=== PATIENT | male | born 1945 | race Caucasian/White ===

== ENCOUNTER 2016-07-28 19:57 | Emergency (ER) | payer MEDICARE ==
[2016-07-28 20:25] VITALS: BP 118/77
--- NOTE | 2016-07-28 20:34 | UC ---
Lower Extremity/Ankle HPI - HPI Summary HPI Summary: complaint of pain in right calf that started 3 days ago constantly throbbing pain leg has become more swollen ambulating and standing increases the pain pain radiates into his ankle and knee currently has lung cancer- 2 chemo treatments [place] has been taking tylenol without relief denies fever, trauma,previous injuries - History of Current Complaint Chief Complaint: UCLowerExtremity Stated Complaint: LEG PAIN Time Seen by Provider: 07/28/16 20:28 - Allergies/Home Medications Allergies/Adverse Reactions: Allergies Allergy/AdvReac Type Severity Reaction Status Date / Time anesthesia Allergy Anxiety Uncoded 06/07/16 05:33 PMH/Surg Hx/FS Hx/Imm Hx Previously Healthy: No - lung cancer Endocrine History Of: Denies: Diabetes Cardiovascular History Of: Denies: Hypertension, Pacemaker/ICD Respiratory History Of: Denies: Asthma Cancer History Of: Reports: Lung Cancer - Surgical History Surgical History: Yes Surgery Procedure, Year, and Place: 1949'S TONSILLECTOMY, (5 YEARS OLD), [place] [facility] [place] 1985 RIGHT INGUINAL HERNIA REPAIR, [facility], [facility], [facility] - Family History Known Family History: Negative: Cardiac Disease, Hypertension, Diabetes Family History: No FHx of malignant hyperthermia. No FHx of anesthesia reaction - Social History Occupation: Disabled Lives: With Family Alcohol Use: None Substance Use Type: None Smoking Status (MU): Former Smoker Amount Used/How Often: 1 PPD Length of Time of Smoking/Using Tobacco: quit smoking in 1997 Have You Smoked in the Last Year: No When Did the Patient Quit Smoking/Using Tobacco: 1997 - Immunization History Most Recent Influenza Vaccination: 05/29/16 Most Recent Tetanus Shot: unknown Most Recent Pneumonia Vaccination: 2013 Review of Systems Constitutional: Negative Skin: Negative Eyes: Negative ENT: Negative Respiratory: Negative Cardiovascular: Negative Gastrointestinal: Negative Genitourinary: Negative Motor: Negative Neurovascular: Negative Musculoskeletal: Other: - RLE pain Neurological: Negative Psychological: Negative All Other Systems Reviewed And Are Negative: Yes Physical Exam Triage Information Reviewed: Yes Appearance: Ill-Appearing, Thin, Cachectic Vital Signs: Initial Vital Signs Temp 96.8 F 07/28/16 20:21 Pulse 84 07/28/16 20:21 Resp 18 07/28/16 20:21 BP 118/77 07/28/16 20:21 Pulse Ox 96 07/28/16 20:21 Vital Signs Reviewed: Yes Eyes: Positive: Conjunctiva Clear ENT: Positive: Pharynx normal, TMs normal. Negative: Nasal congestion Neck: Positive: Supple Respiratory: Positive: Lungs clear, Normal breath sounds, No respiratory distress Cardiovascular: Positive: RRR, No Murmur, Pulses Normal Abdomen Description: Positive: Nontender, Soft Bowel Sounds: Positive: Present Musculoskeletal: Positive: Other: - RLE- edema in right calf , tenderness throughout calf Neurological: Positive: Alert Psychological Exam: Normal Lower Extremity Course/Dx - Course Course Of Treatment: exam completed. discussed that best course of treatment is to proceed to the Emergency Room for further evaluation with doppler/US. pt adamantly refuses to go to the ED- stating that he understands the risk of not getting treatment 'If I sofia from a stroke, cardiac arrest or oulmonary embolism tonight it will be a blessing" - Differential Dx/Diagnosis Differential Diagnosis/HQI/PQRI: DVT Provider Diagnoses: right lower leg pain Discharge - Discharge Plan Condition: Stable Disposition: AGAINST MEDICAL ADVICE Referrals: Samir Brumfield MD [Primary Care Provider] -
== END 2016-07-28 20:54 | disposition left against medical advice (07) ==
LOC: UCEAST 19:57
DX: M79.661 Pain in right lower leg (principal); Z88.4 Allergy status to anesthetic agent; Z87.891 Personal history of nicotine dependence
CPT/HCPCS: 99212; G0463

== ENCOUNTER 2016-07-29 07:07 | Emergency (ER) | payer MEDICARE ==
[2016-07-29 07:27] VITALS: BP 122/82
--- NOTE | 2016-07-29 08:23 | UC ---
Eric Cavanaugh SooYoung, [facility] on 07/29/16 at 0745 . Lower Extremity/Ankle HPI - HPI Summary HPI Summary: A 71 y/o M presents to [facility] with c/o R heel pain radiating to calf when bearing weight onset 4 days ago. Associated sx: edema. Denies any trauma, SOB. Pt was seen yesterday evening at [facility] for same sx. He was recommended to ED to r/u DVT and refused. Pt left AMA. PMHx: Lung CA since 05/2016. Pt states he saw Dr. Stein at [place] a few days ago. She said if the pain did not dissipate in a few days to follow-up, which is why he came to [facility]. - History of Current Complaint Stated Complaint: LEG PAIN Time Seen by Provider: 07/29/16 07:14 Hx Obtained From: Patient, Medical Records Onset/Duration: Lasting Days, Still Present Severity Currently: Mild Pain Intensity: 2 Pain Scale Used: 0-10 Numeric Aggravating Factor(s): Standing, Ambulation - Allergies/Home Medications Allergies/Adverse Reactions: Allergies Allergy/AdvReac Type Severity Reaction Status Date / Time No Known Allergies Allergy Verified 07/29/16 07:19 PMH/Surg Hx/FS Hx/Imm Hx Previously Healthy: No Endocrine History Of: Denies: Diabetes Cardiovascular History Of: Denies: Hypertension, Pacemaker/ICD Respiratory History Of: Denies: Asthma Cancer History Of: Reports: Lung Cancer - Surgical History Surgical History: Yes Surgery Procedure, Year, and Place: 1950'S TONSILLECTOMY, (5 YEARS OLD), [place] [facility] [place] 1985 RIGHT INGUINAL HERNIA REPAIR, [facility] - Family History Known Family History: Negative: Cardiac Disease, Hypertension, Diabetes Family History: No FHx of malignant hyperthermia. No FHx of anesthesia reaction - Social History Occupation: Disabled Lives: With Family Alcohol Use: None Substance Use Type: None Smoking Status (MU): Former Smoker Amount Used/How Often: 1 PPD Length of Time of Smoking/Using Tobacco: quit smoking in 1997 Have You Smoked in the Last Year: No When Did the Patient Quit Smoking/Using Tobacco: 1997 - Immunization History Most Recent Influenza Vaccination: 05/29/16 Most Recent Tetanus Shot: unknown Most Recent Pneumonia Vaccination: 2013 Review of Systems Constitutional: Negative Skin: Negative Eyes: Negative ENT: Negative Respiratory: Negative Cardiovascular: Negative Gastrointestinal: Negative Genitourinary: Negative Motor: Negative Neurovascular: Negative Musculoskeletal: Calf Tenderness - R calf, heel pain, Edema - R calf Neurological: Negative Psychological: Negative All Other Systems Reviewed And Are Negative: Yes Physical Exam Triage Information Reviewed: Yes Appearance: Well-Appearing, No Pain Distress, Well-Nourished Vital Signs: Initial Vital Signs Temp 97.3 F 07/29/16 07:21 Pulse 80 07/29/16 07:21 Resp 18 07/29/16 07:21 BP 122/82 07/29/16 07:21 Pulse Ox 96 07/29/16 07:21 Vital Signs Reviewed: Yes Eyes: Positive: Conjunctiva Clear ENT: Positive: Hearing grossly normal, Pharynx normal, TMs normal. Negative: Muffled/hoarse voice Neck: Positive: Supple, No Lymphadenopathy Respiratory: Positive: Chest non-tender, Lungs clear, Normal breath sounds, No respiratory distress Cardiovascular: Positive: RRR, No Murmur Abdomen Description: Positive: Nontender, No Organomegaly, Soft Bowel Sounds: Positive: Present Musculoskeletal: Positive: Strength Intact, Other: - MILLER; Neurological: Positive: Alert Psychological: Positive: Age Appropriate Behavior Skin: Negative: rashes - Additional Comments R MID CALF IS 14" AND L MID CALF IS 13" NEGATIVE RENEE'S. NO EVIDENCE OF THROMBOPHLEBITIS. NO CALF TENDERNESS WITH PALPATION. MILD DISCOMFORT AT TENDON INSERTIONS AT VOLAR FOOT AT CALCANEUS. Lower Extremity Course/Dx - Course Course Of Treatment: Spoke to pt at length, I suspect this is an orthopedic problem, possibly tendonitis, bursitis or ligament strain of R ankle. Plantar fasciitis is likely. Pt. refuses ankle/footx rays. There is swelling of R calf and pt, correctly, "wants to be safe." He will f/u today with his primary, because scheduling does not permit us to US at [facility]. Pt refuses to go to ED due to concerns about wait times. Note is made: pt was under the impression he could receive U/S today, and was dissappointed that he could not. I suggested that patient call me if he has further questions or concerns, and that I would be here again in 2 days. - Differential Dx/Diagnosis Differential Diagnosis/HQI/PQRI: Bursitis, Tendonitis, Other - ligament strain of R ankle Provider Diagnoses: R ankle discomfort, possible plantar fasciitis. Discharge - Discharge Plan Condition: Stable Disposition: HOME Patient Education Materials: Plantar Fasciitis (ED), Leg Edema (ED) Referrals: Samir Brumfield MD [Primary Care Provider] - Additional Instructions: WE DISCUSSED: 1. Your discomfort with standing may be related to inflammation of the tendons of your foot. See attached information. 2. An ultrasound can be obtained at the ED. 3. Call your physician for your next steps. 4. Elevate leg whenever possible. Ice to area for pain. Warm moist heat in the morning or when stiff. The documentation as recorded by the Eric abbasi SooYoung accurately reflects the service I personally performed and the decisions made by , Rusty Hurt MD.
== END 2016-07-29 08:20 | disposition home or self-care (01) ==
LOC: UCEAST 07:07
DX: M25.571 Pain in right ankle and joints of right foot (principal); Z85.118 Personal history of other malignant neoplasm of bronchus and lung; Z87.891 Personal history of nicotine dependence
CPT/HCPCS: 99211; G0463

== ENCOUNTER 2016-08-28 13:43 | Inpatient (IN) | payer MEDICARE ==
[2016-08-28] MEDS ORDERED: NS 0.9% 1000 ML* 3,000 ML IV ONE (14:18)
[2016-08-28 14:35] LABS: Hematocrit 35 % (42-52); Hemoglobin 11.6 g/dl (14.0-18.0); Mean Corpuscular HGB Conc 33 g/dl (31-36); Mean Corpuscular Hemoglobin 30 pg (27-31); Mean Corpuscular Volume 90 fL (80-94); Mean Platelet Volume 7 um3 (7.4-10.4); Red Blood Count 3.88 10^6/ul (4.0-5.4); Red Cell Distribution Width 19 % (10.5-15); White Blood Count 2.5 10^3/ul (3.5-10.8)
[2016-08-28 14:37] LABS: Add Diff/Slide Review? Slide Review Added; Comments Flag Yes
[2016-08-28 14:48] LABS: Albumin 3.1 g/dL (3.2-5.2); BUN/Creatinine Ratio 38.6 (8-20); C Reactive Protein 13.42 mg/L (< 5.00); Calcium 8.7 mg/dL (8.6-10.3); EGFR African American 117.5 (>60); EGFR Non-African American 91.3 (>60); Globulin 2.3 g/dL (2-4); Magnesium 1.8 mg/dL (1.9-2.7); Potassium 4.5 mmol/L (3.5-5.0); Total Bilirubin 1.2 mg/dL (0.2-1.0); Total Protein 5.4 g/dL (6.4-8.9)
--- NOTE | 2016-08-28 14:48 | RAD ---
INDICATION: Superventricular tachycardia. COMPARISON: There are no prior studies available for comparison. TECHNIQUE: A portable view of the chest was obtained. FINDINGS: The heart is within normal limits in size. There is an infiltrate present at the right lung base and a small right pleural effusion. The left lung appears clear. IMPRESSION: RIGHT BASILAR INFILTRATE AND PLEURAL EFFUSION, RECOMMEND FOLLOW-UP CHEST X-RAYS TO RESOLUTION.
[2016-08-28 14:56] LABS: Troponin I 0.25 ng/mL (<0.04)
[2016-08-28 15:12] LABS: Urine Bilirubin Negative (Negative); Urine Glucose Negative (Negative); Urine Nitrite Negative (Negative)
[2016-08-28 15:26] LABS: TSH (Thyroid Stimulating Horm) 2.28 mcIU/mL (0.34-5.60)
[2016-08-28] MEDS ORDERED: Magnesium Sulfate 2 GM IV* 2 GM/50 ML BAG IVPB ONE (15:31)
[2016-08-28] MEDS ORDERED: Ondansetron INJ* 2 MG/ML VIAL IV PRN (15:39)
[2016-08-28] MEDS ORDERED: Acetaminophen TAB* 325 MG PO PRN (15:39)
[2016-08-28] MEDS ORDERED: cefTRIAXone(*) 1 GM in NS 0.9% 50 ML* 50 ML IVPB ONE (15:42)
[2016-08-28] MEDS ORDERED: Azithromycin IV(*) 500 MG in NS 0.9% 250 ML* 250 ML IVPB ONE (15:42)
--- NOTE | 2016-08-28 15:47 | ED ---
Evans Cavanaugh Benjamin, scribed for Modesto Coto MD on 08/28/16 at 1426 . Palpitations / Dysrhythmia - HPI Summary HPI Summary: 71yo male BIB EMS for arrhythmia. At 1030 today, pt started feeling nervous and anxious, with 2/10 right sided CP. Then his visiting nurse found HR of 147 and low BP. Pt was in aflutter en route, was given adenosine by EMT. Pts CP has been intermittent in the past few days but was constant today. Pt was also recently dxed with afib, and have 2 DVT in right leg 2 weeks ago. On Xeralto. 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 Denies N/V, fever , calf pain, but reports chills. Fhx of stomach CA, and CAD. - History of Current Complaint Chief Complaint: EDDysrhythmPalp Hx Obtained From: Patient Onset/Duration: Sudden Onset, Lasting Hours, Still Present Timing: Constant Severity Initially: Mild Severity Currently: Mild Character: Fluttering Aggravating: Nothing Alleviating: Nothing Associated Signs & Symptoms: Chest Pain - righ sided - Allergy/Home Medications Allergies/Adverse Reactions: Allergies Allergy/AdvReac Type Severity Reaction Status Date / Time No Known Allergies Allergy Verified 08/28/16 14:02 Home Medications: Home Medications Dexamethasone TAB* [Decadron TAB*] 4 mg PO TID 08/28/16 [History Confirmed 08/28] Folic Acid TAB* [Folvite TAB*] 1 mg PO DAILY 08/28/16 [History Confirmed ] LORazepam TAB(*) [Ativan TAB(*)] 1 mg PO .Q4-6H PRN 08/28/16 [History Confirmed 08/28/16] OLANzapine TAB* [ZyPREXA TAB*] 10 mg PO BEDTIME 08/28/16 [History Confirmed 08/13] Rivaroxaban TAB(*) [Xarelto 20 mg] 20 mg PO DAILY 08/28/16 [History Confirmed ] PMH/Surg Hx/FS Hx/Imm Hx Endocrine/Hematology History: Denies: Hx Diabetes Cardiovascular History: Reports: Hx Aneurysm, Other Cardiovascular Problems/ Disorders - abdominal aortic aneurysm Denies: Hx Hypertension, Hx Pacemaker/ICD Respiratory History: Reports: Hx Lung Cancer Denies: Hx Asthma History: Reports: Other Problems/Disorders - SLOW STREAM, PROSTATE CANCER DIAGNOSISED 2012 Musculoskeletal History: Reports: Hx Arthritis Sensory History: Reports: Hx Contacts or Glasses - GLASSES FOR DISTANCE Denies: Hx Hearing Aid Opthamlomology History: Reports: Hx Contacts or Glasses - GLASSES FOR DISTANCE Psychiatric History: Denies: Hx Panic Disorder - Cancer History Cancer Type, Location and Year: LUNG CA - Surgical History Surgery Procedure, Year, and Place: 1949'S TONSILLECTOMY, (5 YEARS OLD), [place] [facility] [place] 1985 [facility] [place] Hx Anesthesia Reactions: Yes - "FELT LIKE I NEED TO CLIMB THE CARRILLO, COMING OUT OF ANESTHESIA" - Immunization History Date of Tetanus Vaccine: UTD Date of Influenza Vaccine: 06/04/16 Infectious Disease History: No Infectious Disease History: Denies: Traveled Outside the [place] in Last 30 Days - Family History Known Family History: Positive: Cardiac Disease, Other - stomach CA Negative: Hypertension, Diabetes Family History: No FHx of malignant hyperthermia. No FHx of anesthesia reaction - Social History Alcohol Use: None Substance Use Type: Reports: None Smoking Status (MU): Former Smoker Amount Used/How Often: 1 PPD Length of Time of Smoking/Using Tobacco: quit smoking in 1997 Have You Smoked in the Last Year: No Review of Systems Constitutional: Negative Eyes: Negative ENT: Negative Positive: Palpitations, Chest Pain Positive: Shortness Of Breath Gastrointestinal: Negative Genitourinary: Negative Musculoskeletal: Negative Skin: Negative Neurological: Negative Positive: Anxious All Other Systems Reviewed And Are Negative: Yes Physical Exam Triage Information Reviewed: Yes Vital Signs On Initial Exam: Initial Vitals BP 94/61 08/28/16 14:00 Vital Signs Reviewed: Yes Appearance: Positive: Well-Appearing, No Pain Distress, Well-Nourished Skin: Positive: Warm, Skin Color Reflects Adequate Perfusion, Dry Head/Face: Positive: Normal Head/Face Inspection Eyes: Positive: Normal ENT: Positive: Normal ENT inspection Neck: Positive: Supple, Nontender Respiratory/Lung Sounds: Positive: Clear to Auscultation, Breath Sounds Present Cardiovascular: Positive: RRR Abdomen Description: Positive: Nontender, No Organomegaly, Soft Bowel Sounds: Positive: Present Musculoskeletal: Positive: Strength/ROM Intact, Edema Right - mild pedal edema Neurological: Positive: Normal, Sensory/Motor Intact, Alert, Oriented to Person Place, Time, CN Intact II-III, Other - chronic tremors Diagnostics - Vital Signs Vital Signs Temp Pulse Resp BP Pulse Ox 08/28/16 14:03 98.2 F 100 24 94/61 99 08/28/16 14:01 73 25 98 08/28/16 14:00 94/61 - Laboratory Lab Results: Lab Results 08/28/16 08/28/16 08/28/16 Range/Units 14:10 14:10 14:10 WBC 2.5 L (3.5-10.8) 10^3/ul RBC 3.88 L (4.0-5.4) 10^6/ul Hgb 11.6 L (14.0-18.0) g/dl Hct 35 L (42-52) % MCV 90 (80-94) fL MCH 30 (27-31) pg MCHC 33 (31-36) g/dl RDW 19 H (10.5-15) % Plt Count 54 L (150-450) 10^3/ul MPV 7 L (7.4-10.4) um3 Neut % (Auto) 72.0 (38-83) % Lymph % (Auto) 26.7 (25-47) % Banner % (Auto) 1.1 (1-9) % Eos % (Auto) 0.1 (0-6) % Baso % (Auto) 0.1 (0-2) % Absolute Neuts (auto) 1.8 (1.5-7.7) 10^3/ul Absolute Lymphs (auto) 0.7 L (1.0-4.8) 10^3/ul Absolute Monos (auto) 0 (0-0.8) 10^3/ul Absolute Eos (auto) 0 (0-0.6) 10^3/ul Absolute Basos (auto) 0 (0-0.2) 10^3/ul Absolute Nucleated RBC 0 10^3/ul Nucleated RBC % 0.1 Hem Pathologist Commnt Pending INR (Anticoag Therapy) 1.43 H (0.89-1.11) APTT 25.5 L (26.0-36.3) seconds D-Dimer, Quantitative > 1050 H (Less Than 230) ng/mL Sodium 137 (133-145) mmol/L Potassium 4.5 (3.5-5.0) mmol/L Chloride 104 (101-111) mmol/L Carbon Dioxide 27 (22-32) mmol/L Anion Gap 6 (2-11) mmol/L BUN 32 H (6-24) mg/dL Creatinine 0.83 (0.67-1.17) mg/dL Est GFR ( Amer) 117.5 (>60) Est GFR (Non-Af Amer) 91.3 (>60) BUN/Creatinine Ratio 38.6 H (8-20) Glucose 102 H (70-100) mg/dL Lactic Acid (0.5-2.0) mmol/L Calcium 8.7 (8.6-10.3) mg/dL Magnesium 1.8 L (1.9-2.7) mg/dL Total Bilirubin 1.20 H (0.2-1.0) mg/dL AST 84 H (13-39) U/L ALT 185 H (7-52) U/L Alkaline Phosphatase 90 (34-104) U/L Total Creatine Kinase 49 (10-223) U/L CK-MB (CK-2) 11.1 H (0.6-6.3) ng/mL Troponin I 0.25 H* (<0.04) ng/mL C-Reactive Protein 13.42 H (< 5.00) mg/L B-Natriuretic Peptide ( - 100) pg/mL Total Protein 5.4 L (6.4-8.9) g/dL Albumin 3.1 L (3.2-5.2) g/dL Globulin 2.3 (2-4) g/dL Albumin/Globulin Ratio 1.3 (1-3) Lipase 24 (11.0-82.0) U/L TSH 2.28 (0.34-5.60) mcIU/mL Urine Color Urine Appearance Urine pH (5-9) Ur Specific [place] (1.010-1.030) Urine Protein (Negative) Urine Ketones (Negative) Urine Blood (Negative) Urine Nitrate (Negative) Urine Bilirubin (Negative) Urine Urobilinogen (Negative) Ur Leukocyte Esterase (Negative) Urine Glucose (Negative) 08/28/16 08/28/16 08/28/16 Range/Units 14:10 14:10 14:55 WBC (3.5-10.8) 10^3/ul RBC (4.0-5.4) 10^6/ul Hgb (14.0-18.0) g/dl Hct (42-52) % MCV (80-94) fL MCH (27-31) pg MCHC (31-36) g/dl RDW (10.5-15) % Plt Count (150-450) 10^3/ul MPV (7.4-10.4) um3 Neut % (Auto) (38-83) % Lymph % (Auto) (25-47) % Banner % (Auto) (1-9) % Eos % (Auto) (0-6) % Baso % (Auto) (0-2) % Absolute Neuts (auto) (1.5-7.7) 10^3/ul Absolute Lymphs (auto) (1.0-4.8) 10^3/ul Absolute Monos (auto) (0-0.8) 10^3/ul Absolute Eos (auto) (0-0.6) 10^3/ul Absolute Basos (auto) (0-0.2) 10^3/ul Absolute Nucleated RBC 10^3/ul Nucleated RBC % Hem Pathologist Commnt INR (Anticoag Therapy) (0.89-1.11) APTT (26.0-36.3) seconds D-Dimer, Quantitative (Less Than 230) ng/mL Sodium (133-145) mmol/L Potassium (3.5-5.0) mmol/L Chloride (101-111) mmol/L Carbon Dioxide (22-32) mmol/L Anion Gap (2-11) mmol/L BUN (6-24) mg/dL Creatinine (0.67-1.17) mg/dL Est GFR ( Amer) (>60) Est GFR (Non-Af Amer) (>60) BUN/Creatinine Ratio (8-20) Glucose (70-100) mg/dL Lactic Acid 2.3 H* (0.5-2.0) mmol/L Calcium (8.6-10.3) mg/dL Magnesium (1.9-2.7) mg/dL Total Bilirubin (0.2-1.0) mg/dL AST (13-39) U/L ALT (7-52) U/L Alkaline Phosphatase (34-104) U/L Total Creatine Kinase (10-223) U/L CK-MB (CK-2) (0.6-6.3) ng/mL Troponin I (<0.04) ng/mL C-Reactive Protein (< 5.00) mg/L B-Natriuretic Peptide 790 H ( - 100) pg/mL Total Protein (6.4-8.9) g/dL Albumin (3.2-5.2) g/dL Globulin (2-4) g/dL Albumin/Globulin Ratio (1-3) Lipase (11.0-82.0) U/L TSH (0.34-5.60) mcIU/mL Urine Color Yellow Urine Appearance Clear Urine pH 6.0 (5-9) Ur Specific [place] 1.016 (1.010-1.030) Urine Protein Negative (Negative) Urine Ketones Negative (Negative) Urine Blood Negative (Negative) Urine Nitrate Negative (Negative) Urine Bilirubin Negative (Negative) Urine Urobilinogen Negative (Negative) Ur Leukocyte Esterase Negative (Negative) Urine Glucose Negative (Negative) Result Diagrams: 08/28/16 14:10 08/28/16 14:10 Lab Statement: Any lab studies that have been ordered have been reviewed, and results considered in the medical decision making process. - Radiology CXR Xray Interpretation: Positive (See Comments) - IMPRESSION: RIGHT BASILAR INFILTRATE AND PLEURAL EFFUSION, RECOMMEND FOLLOW-UP CHEST X-RAYS TO RESOLUTION. Radiology Interpretation Completed By: Radiologist - EKG 0996. Cardiac Rate: NL - 88bpm ST Segment: Non-Specific - no specific ST abnormalities diffusely. Course/Dx - Course Assessment/Plan: PATIENT INITIALLY IN RAPID AFIB IN ED WITH HYPOTENSION. AFTER IV FLUIDS, PATIENT RETURNED TO NORMAL SINUS. CXR WITH INFILTRATE, WILL TREAT WITH IV ABX. ADMIT HOSPITALIST STABLE. - Diagnoses Provider Diagnoses: SVT (supraventricular tachycardia), A-fib, Elevated troponin, Pneumonia Discharge - Discharge Plan Condition: Stable Disposition: ADMITTED TO [facility] Referrals: Samir Brumfield MD [Primary Care Provider] - The documentation as recorded by the Evans abbasi Benjamin accurately reflects the service I personally performed and the decisions made by ky, Modesto Coto MD.
[2016-08-28] MEDS ORDERED: LORazepam TAB(*) 1 MG PO ONE (17:11)
[2016-08-28] MEDS ORDERED: Iohexol 350* (CONTRAST) 500 ML MDV IV ONE (17:35)
--- NOTE | 2016-08-28 18:18 | RAD ---
INDICATION: Hypotension and tachycardia. COMPARISON: Comparison is made with a prior chest x-ray study of the same day. TECHNIQUE: A CT angiogram of the chest was performed with intravenous following intravenous injection of 66 ml of Omnipaque 350 nonionic contrast. Contiguous axial sections were obtained from the lung apices through the lung bases. Images were reconstructed in the coronal and sagittal planes. FINDINGS: There are intraluminal filling defects in the left upper lobe lingular segmental arteries consistent with pulmonary emboli. The right basilar segmental arteries are small in caliber extending through masslike area of infiltration although no additional emboli are seen. The heart is within normal limits in size. No pericardial effusion is present. The thoracic aorta is mildly ectatic with moderate plaque present. There is no evidence for dissection. No significant enlarged mediastinal lymph nodes are seen. No left hilar lymph nodes are present. There is increased density around the right hilum limiting evaluation of this area. There is a moderate size right pleural effusion and a peripheral patchy infiltrate within the right upper and lower lobes. There is a more consolidative masslike infiltrate present adjacent to the posterior and inferior aspect of the left hilum. There is mild to moderate centrilobular emphysematous change. Images of the upper abdomen demonstrate fatty infiltration of the liver. There is a mild chronic appearing compression fracture of the superior endplate of the T6 vertebral body. No other focal osseous abnormalities are seen. The results of this exam were discussed with the referring clinician. IMPRESSION: 1. THERE ARE SEVERAL PULMONARY EMBOLI PRESENT IN THE LEFT UPPER LOBE. 2. MODERATE SIZE RIGHT PLEURAL EFFUSION. 3. PATCHY RIGHT UPPER AND LOWER LOBE INFILTRATES. 4. MORE CONFLUENT MASSLIKE INFILTRATE ADJACENT TO THE RIGHT HILUM SUSPICIOUS FOR A MALIGNANCY. 5. MILD COMPRESSION FRACTURE OF THE T6 VERTEBRAL BODY LIKELY CHRONIC.
[2016-08-28] MEDS ORDERED: Magnesium Sulf 4 GM/100 ML IV* 4,000 MG/100 ML BAG IVPB ONE (18:45)
[2016-08-28] MEDS ORDERED: LORazepam TAB(*) 1 MG PO PRN (18:51)
[2016-08-28] MEDS ORDERED: Albuterol/Ipratropium NEB.SOL* Albuterol 2.5 MG/Ipratropium 0.5 MG 3 ML INH PRN (19:03)
[2016-08-28] MEDS: Enoxaparin(*) 80 MG/0.8 ML SYR SUBCUT SCH (19:58)
[2016-08-28] MEDS: OLANzapine TAB* 10 MG PO SCH (20:08)
[2016-08-28] MEDS: Dexamethasone TAB* 4 MG PO SCH (20:09)
[2016-08-28] MEDS: NS 0.9% 1000 ML* 1,000 ML IV SCH (21:16)
--- NOTE | 2016-08-28 21:49 | HP ---
HISTORY AND PHYSICAL: DATE OF ADMISSION: 08/28/16 TIME OF MY EVALUATION: 5 p.m. PRIMARY CARE PROVIDER: Samir Brumfield MD. ONCOLOGIST: Dr. Bradshaw. CHIEF COMPLAINT: Shortness of breath/palpitations. HISTORY OF PRESENT ILLNESS: Mr. Yadav is a pleasant 71-year-old man who was brought in to the emergency room by EMS for a rapid heart rate. Earlier today - at 10:30 a.m. - the patient felt nervous and anxious and experienced 2/10 right-sided chest pain. The patient was with his visiting nurse who measured his heart rate at approximately 150 beats per minute. His blood pressure was low. The patient was brought to the hospital by EMS and they detected atrial flutter en route and the patient was given adenosine by the EMT. The patient was recently diagnosed with 2 DVT's in his right leg. This was on 08/13/16. The patient was started at that time on Xarelto. He states he has been taking it. 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 He is undergoing chemotherapy and is experiencing multiple side effects including ongoing nausea, vomiting and poor oral intake. The patient was stabilized in the emergency room. He required additional doses of adenosine for his recurrent atrial fibrillation. His initial troponin was indeterminate at 0.22. The patient had a chest x-ray that suggested a right basilar infiltrate as well as a right pleural effusion. The patient was started on IV antibiotics following blood cultures. The patient was bolused with fluids because his lab work suggested mild dehydration and he was referred for admission. PAST MEDICAL HISTORY: 1. Lung mass diagnosed as lung adenocarcinoma, undergoing chemotherapy under Dr. Bradshaw at [facility]. 2. Prostate cancer - reportedly in remission. 3. Hyperlipidemia. 4. AAA - about 3 years - I do not have dimensions. 5. Lung cancer stage IV with known [employer] involvement. OUTPATIENT MEDICATIONS: 1. Xarelto 20 mg by mouth daily. 2. Dexamethasone (Decadron) 4 mg by mouth 3 times daily. 3. Folic acid 1 mg by mouth daily. 4. Lorazepam/Ativan 1 mg by mouth every 4 to 6 hours p.r.n. anxiety/insomnia. 5. Olanzapine 10 mg by mouth at bedtime. 6. Omeprazole 20 mg by mouth daily. 7. Tamsulosin 0.4 mg by mouth daily. ALLERGIES: No known drug allergies. FAMILY HISTORY: Reviewed but noncontributory based for this situation. 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 He is a . The patient is a remote smoker, but has not smoked for more than 10 years. The patient is accompanied by his good friend and his daughter, lEyssa, is his surrogate decision maker. Had a discussion about code status and the patient opted very clearly for DNR status and a MOLST was completed to that effect. REVIEW OF SYSTEMS: A review of 14 systems was accomplished at the bedside. It is largely negative outside of the side effects he seems to be experiencing from his chemotherapy. He specifically describes nausea in general, fatigue and listlessness. The patient has noticed this in conjunction with his chemotherapy regimen/treatments. PHYSICAL EXAMINATION AT ADMISSION GENERAL APPEARANCE: Elderly man, general tremor noted. No acute distress. VITAL SIGNS: Temperature 97.6 degrees Fahrenheit, pulse rate was consistently in the 70s to 80s, blood pressure has intermittently been quite low but has been with systolics over 100 predominantly. Respirations are 20 and unlabored. Oxygen saturation is 94% on room air. NECK: Supple. No elevated JVD. CHEST: Clear breath sounds anteriorly. Diminished at the right base. Diminished in the left mid lung field. Rhonchi on the left noted. ABDOMEN: Soft and nontender. SKIN: Dry and intact. He does have bilateral ankle swelling and he states this is worse than it normally is. RECTAL: He had a stool before my exam, which had some maroon color to it. He does not espouse usual bleeding. NEUROLOGIC: His exam is intact. No focal sensory or motor defects. LYMPHS: No adenopathy appreciated. ADMISSION DATA: White blood cell count 2.5 (low), hemoglobin 11.6 (low), platelets 54 (low), INR 1.43 (on Xarelto). D-dimer was greater than 1050. Blood chemistry is significant for elevated BUN to creatinine ratio at 32 and 0.83 respectively with a ratio of 38.6. Other chemistries were generally normal , though his magnesium was low at 1.8. Total bilirubin elevated at 1.2 with AST and ALT elevated at 84 and 185 respectively. His troponin was indeterminate at 0.25. His CRP was elevated at greater than 13. BNP elevated at nearly 800. Albumin low at 3.1. Urinalysis was normal in all respects. CTA of chest in the emergency room showed multiple findings including 2 distinct pulmonary emboli in the left upper lobe. There was a right hilar confluent mass adjacent to the right hilum suspicious for malignancy (and confirmed by his clinical history). Moderate sized right pleural effusion with patchy right upper and lower lobe infiltrates (pneumonia clinically). Mild compression fractures of the T6 vertebral bodies - likely chronic. Chest x-ray done prior to the chest CTA suggested right basilar infiltrate and pleural effusion with recommended followup or CT. IMPRESSION: Mr. Yadav is a 71-year-old gentleman who presents to the hospital with atrial arrhythmia broken chemically with adenosine who recently was diagnosed with deep venous thrombosis bilaterally and on a NOAC, now with seeming failure of this NOAC to prevent increasing clot burden, now presenting with 2 distinct pulmonary emboli in the left upper lobe as well as middle lobe infiltrates consistent with pneumonia in the setting of chemotherapy for stage IV lung cancer. PLAN PER MEDICAL PROBLEM: 1. Acute pulmonary emboli in the setting of stage IV lung cancer and likely pneumonia. The patient certainly has reasons to be hypercoagulable. He was reliably taking his Xarelto and so, I believe this represents a Xarelto failure. I will start the patient on Lovenox b.i.d. - the data in the medical literature for efficacy of treating VTE (venothromboembolic emboli) is best with lovenox, The patient will receive Lovenox education and arrangements will be made for him to receive this as an outpatient. The other alternative is Coumadin, though the data is actually better for Lovenox in the cancer-patient population. 2. Pneumonia - the patient is immunosuppressed because of his ongoing steroids as well as his chemotherapy. The patient was started on ceftriaxone and azithromycin. We will see how he responds to this therapy and will make further decisions based on his response. I will make the Duonebulizer available for the patient if he feels short of breath. 3. Stage IV lung cancer - the patient reported metastasis to [employer]. Obtain outpatient records from Dr. Bradshaw or the [facility]. Continue steroids as per outpatient regimen. 4. Essential tremor/anxiety - the patient is certainly upset by the current events and has received Ativan with little effect. I am going to provide extra doses with a close eye on his respiratory status. 5. History of prostate cancer - continue Flomax - check PSA at the patient's request as he is fretting that he has not paid attention to his prostate cancer followup. 6. DVT prophylaxis is accomplished by treatment of his pulmonary emboli. 7. The patient is a DNR - MOLST is filled out and placed in the chart. TIME SPENT: Total time taken to admit Mr. Yadav was 80 minutes, greater than half that time was spent at the bedside going over the history and physical examination [id number] and addressing the plan of care to the patient who is in agreement with it. CC: Samir Brumfield MD; Dr. Bradshaw * [id number]/[facility] #: [id number] [facility] CENTERLotus
[2016-08-28] MEDS: LORazepam TAB(*) 1 MG PO PRN (23:01)
[2016-08-28] MEDS: diPHENhydraMINE LIQ* 12.5 MG/5 ML UDC PO PRN (23:02)
[2016-08-29] MEDS: LORazepam TAB(*) 1 MG PO PRN ×2 (02:10→16:58)
[2016-08-29] MEDS: NS 0.9% 1000 ML* 1,000 ML IV SCH ×3 (04:32→19:27)
[2016-08-29 06:02] LABS: Hematocrit 31 % (42-52); Hemoglobin 9.9 g/dl (14.0-18.0); Mean Corpuscular HGB Conc 32 g/dl (31-36); Mean Corpuscular Hemoglobin 29 pg (27-31); Mean Corpuscular Volume 91 fL (80-94); Mean Platelet Volume 8 um3 (7.4-10.4); Red Cell Distribution Width 20 % (10.5-15)
[2016-08-29 06:04] LABS: Add Diff/Slide Review? Slide Review Added; Comments Flag Yes; White Blood Count 1.8 10^3/ul (3.5-10.8)
[2016-08-29] MEDS: Enoxaparin(*) 80 MG/0.8 ML SYR SUBCUT SCH ×2 (06:27→18:16)
[2016-08-29 06:35] LABS: BUN/Creatinine Ratio 36.8 (8-20); Calcium 7.8 mg/dL (8.6-10.3); EGFR African American 181.2 (>60); EGFR Non-African American 140.9 (>60); Magnesium 2.5 mg/dL (1.9-2.7); Potassium 4.2 mmol/L (3.5-5.0)
[2016-08-29 06:44] LABS: Troponin I 0.14 ng/mL (<0.04)
[2016-08-29] MEDS: Folic Acid TAB* 1 MG PO SCH (10:37)
[2016-08-29] MEDS: Omeprazole CAP* 20 MG PO SCH (10:38)
[2016-08-29] MEDS: Tamsulosin CAP* 0.4 MG PO SCH (10:38)
[2016-08-29] MEDS: Dexamethasone TAB* 4 MG PO SCH ×2 (10:39→14:38)
[2016-08-29] MEDS: Azithromycin IV(*) 500 MG in NS 0.9% 250 ML* 250 ML IVPB SCH (13:44)
[2016-08-29] MEDS: cefTRIAXone VIAL(*) 1,000 MG in NS 0.9% 50 ML* 50 ML IVPB SCH (15:24)
--- NOTE | 2016-08-29 19:08 | PN ---
Subjective Date of Service: 08/29/16 Interval History: . long conversations with patient x 2 many questions answered about current situation spoke with Dr. Bradshaw and updated him. patient good to go on lovenox will complete course of antibiotics. concern about mobility at home - will walk patient to see how he does eating very well! Family History: Unchanged from Admission Social History: Unchanged from Admission Past Medical History: Unchanged from Admission Objective Active Medications: . Acetaminophen (Tylenol Tab*) 650 mg PO Q4H PRN PRN Reason: FEVER/PAIN Albuterol/Ipratropium (Duoneb Neb.Shira*) 1 neb INH Q4H PRN PRN Reason: shortness of breath Dexamethasone (Decadron Tab*) 4 mg PO DAILY [facility] Diphenhydramine HCl (Benadryl Liq*) 25 mg PO BEDTIME PRN PRN Reason: insonmia Last Admin: 08/28/16 23:02 Dose: 25 mg Enoxaparin Sodium (Lovenox(*)) 80 mg SUBCUT Q12H [facility] Last Admin: 08/29/16 18:16 Dose: 80 mg Folic Acid (Folvite Tab*) 1 mg PO DAILY [facility] Last Admin: 08/29/16 10:37 Dose: 1 mg Sodium Chloride (Ns 0.9% 1000 Ml*) 1,000 mls @ 150 mls/hr IV PER RATE [facility] Last Admin: 08/29/16 11:29 Dose: 150 mls/hr Ceftriaxone Sodium 1,000 mg/ (Sodium Chloride) 50 mls @ 200 mls/hr IVPB Q24H [facility] Last Admin: 08/29/16 15:24 Dose: 200 mls/hr Azithromycin 500 mg/ Sodium (Chloride) 250 mls @ 250 mls/hr IVPB Q24H [facility] Last Admin: 08/29/16 13:44 Dose: 250 mls/hr Lorazepam (Ativan Tab(*)) 1 mg PO Q4H PRN PRN Reason: ANXIETY Last Admin: 08/29/16 16:58 Dose: 1 mg Lorazepam (Ativan Tab(*)) 1 mg PO ONCE@DAILY PRN PRN Reason: INSOMNIA Last Admin: 08/29/16 02:11 Dose: 1 mg Morphine Sulfate (Morphine Inj (Syringe)*) 2 mg IV Q4H PRN PRN Reason: PAIN Olanzapine (Zyprexa Tab*) 10 mg PO BEDTIME [facility] Last Admin: 08/28/16 20:08 Dose: 10 mg Omeprazole (Prilosec Cap*) 20 mg PO DAILY [facility] Last Admin: 08/29/16 10:38 Dose: 20 mg Ondansetron HCl (Zofran Inj*) 4 mg IV Q4H PRN PRN Reason: NAUSEA/VOMITING Tamsulosin HCl (Flomax Cap*) 0.4 mg PO DAILY [facility] Last Admin: 08/29/16 10:38 Dose: 0.4 mg . Vital Signs 08/28/16 08/28/16 08/28/16 19:16 19:27 20:00 Temperature Pulse Rate 84 Respiratory 20 16 Rate Blood Pressure 87/64 (mmHg) O2 Sat by Pulse Oximetry 08/28/16 08/28/16 08/28/16 20:03 20:15 22:06 Temperature 98.1 F Pulse Rate 81 93 Respiratory 18 20 16 Rate Blood Pressure 84/58 (mmHg) O2 Sat by Pulse 92 94 Oximetry Oxygen Devices in Use Now: Nasal Cannula Appearance: elderly and frail Eyes: No Scleral Icterus Ears/Nose/Mouth/Throat: Clear Oropharnyx Neck: Trachea Midline Respiratory: Symmetrical Chest Expansion and Respiratory Effort Cardiovascular: NL Sounds; No Murmurs; No JVD Abdominal: NL Sounds; No Tenderness; No Distention Lymphatic: No Cervical Adenopathy Extremities: No Edema Skin: No Rash or Ulcers Neurological: Alert and Oriented x 3 Lines/Tubes/Other Access: Clean, Dry and Intact Peripheral IV Nutrition: Taking PO's Result Diagrams: 08/29/16 05:29 08/29/16 05:29 Additional Lab and Data: . Assess/Plan/Problems-Billing . Assessment: 71 yo man with stage IV lung cancer - s/p 4 rounds of chemotherapy with carboplatin Now with acute PE in setting of RLL pneumonia with tachyarrythmia. doing well on lovenox and antibiotics. likely dc in AM. . - Patient Problems (1) Pulmonary embolism on long-term anticoagulation therapy Current Visit: Yes Status: Acute Priority: High Code(s): I26.99 - OTHER PULMONARY EMBOLISM WITHOUT ACUTE COR PULMONALE; Z79.01 - HALFWAY (CURRENT) USE OF ANTICOAGULANTS SNOMED Code(s): 524441205 Comment: - upgrade to lovenox - not hypoxic (2) Lobar pneumonia, unspecified organism Current Visit: Yes Status: Acute Priority: High Code(s): J18.1 - LOBAR PNEUMONIA, UNSPECIFIED ORGANISM Comment: - contributed to PE - on antibiotics - duonebs prn - improving steadily (3) Aortic aneurysm Current Visit: No Status: Acute Priority: High Code(s): I71.9 - AORTIC ANEURYSM OF UNSPECIFIED SITE, WITHOUT RUPTURE Comment: AAA 4.7 cm in 09/2012. (4) Hyperlipidemia Current Visit: No Status: Acute Priority: Medium Code(s): E78.5 - HYPERLIPIDEMIA, UNSPECIFIED Comment: Continue statin. 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 Bradshaw
[2016-08-29] MEDS: OLANzapine TAB* 10 MG PO SCH ×2 (20:40→20:45)
[2016-08-30] MEDS: NS 0.9% 1000 ML* 1,000 ML IV SCH (02:26)
[2016-08-30 06:33] LABS: Add Diff/Slide Review? Slide Review Added; Comments Flag Yes; Hematocrit 31 % (42-52); Hemoglobin 10.5 g/dl (14.0-18.0); Mean Corpuscular HGB Conc 34 g/dl (31-36); Mean Corpuscular Hemoglobin 30 pg (27-31); Mean Corpuscular Volume 89 fL (80-94); Mean Platelet Volume 7 um3 (7.4-10.4); Red Blood Count 3.49 10^6/ul (4.0-5.4); Red Cell Distribution Width 20 % (10.5-15); White Blood Count 1.9 10^3/ul (3.5-10.8)
[2016-08-30 07:08] LABS: BUN/Creatinine Ratio 23.2 (8-20); Calcium 8.6 mg/dL (8.6-10.3); EGFR African American 145.4 (>60); Potassium 3.6 mmol/L (3.5-5.0)
[2016-08-30] MEDS: Enoxaparin(*) 80 MG/0.8 ML SYR SUBCUT SCH ×2 (08:24→20:35)
[2016-08-30] MEDS: Folic Acid TAB* 1 MG PO SCH (08:25)
[2016-08-30] MEDS: Tamsulosin CAP* 0.4 MG PO SCH (08:25)
[2016-08-30] MEDS: Dexamethasone TAB* 4 MG PO SCH (08:26)
[2016-08-30] MEDS: Omeprazole CAP* 20 MG PO SCH (08:26)
[2016-08-30] MEDS: Azithromycin IV(*) 500 MG in NS 0.9% 250 ML* 250 ML IVPB SCH (13:47)
[2016-08-30] MEDS: cefTRIAXone VIAL(*) 1,000 MG in NS 0.9% 50 ML* 50 ML IVPB SCH (15:48)
--- NOTE | 2016-08-30 16:21 | CONS ---
CC: Samir Brumfield MD PALLIATIVE CARE CONSULTATION REPORT: DATE OF CONSULT: 08/30/16 PRIMARY CARE PHYSICIAN: Samir Brumfield MD REQUESTING PHYSICIAN FOR CONSULT: Chapin Hillman MD REASON FOR CONSULT: Evaluation for hospice. HISTORY OF PRESENT ILLNESS: This is a 71-year-old male with a past medical history of stage IV lung carcinoma with mets to the brain diagnosed in May of 2016, status post radiation and currently on chemotherapy, who presented to the emergency room on the 28 of August with shortness of breath and palpitations. The patient is living with his daughter and she is amazingly taking care of him. A visiting nurse came into the home and noted that his heart rate was up to 150 beats per minute. He was also hypotensive at that time. The patient was recently diagnosed with DVTs and was started on Xarelto. When the patient arrived to the emergency room, he was noted to be in rapid atrial fibrillation. He had indeterminate troponin and he had a CTA that showed several pulmonary emboli present in the left upper lobe; moderate-sized right pleural effusion; patchy right upper and lower lobe infiltrates; more confluent mass like infiltrate adjacent to the right hilum, suspicious for malignancy; mild compression fracture of the T6 vertebral body, likely chronic. The patient was admitted with acute pulmonary emboli with pneumonia and it was felt that this was a Xarelto failure and started on Lovenox with Coumadin; he was started on Lovenox and potentially did transition to Coumadin. Palliative Care was consulted for end-of-life discussion including hospice. The patient states that he has been getting chemotherapy and has had 4 sessions and has not done well with the side effects including fatigue and anorexia and feeling bloated, although past 2 days, he states his appetite seems to be back to himself. He has had a significant amount of anxiety related to his diagnosis. He states that oral lorazepam does help, but the IV form makes him hallucinate and confused. The patient denies any pain. He states his breathing is okay. His daughter has moved in to help care for him and he has required more and more help from her including personal hygiene and meal preparation. The patient at this time is not sure if he wants to continue with chemotherapy and the side effects of the chemotherapy and he is interested in more information regarding hospice. He states he would like to eventually go on hospice. He is not sure if he is ready at this time. His did from cancer while she was on hospice 8 years ago and he would like to have the same situation for him. PAST MEDICAL HISTORY: 1. Stage IV lung cancer with mets to the brain, status post radiation and currently on chemotherapy, followed by Dr. Bradshaw at [facility]. 2. History of prostate cancer. 3. Hyperlipidemia. 4. History of AAA. 5. Recent diagnosis of DVT, on Xarelto. 6. Anxiety. MEDICATIONS: Outpatient medications: 1. Xarelto 20 mg p.o. daily. 2. Dexamethasone 4 mg by mouth 3 times a day. 3. Folic acid 1 mg daily. 4. Lorazepam 1 mg every 4 to 6 hours as needed for anxiety. 5. Olanzapine 10 mg at bedtime. 6. Omeprazole 20 mg daily. 7. Tamsulosin 0.4 mg p.o. daily. Inpatient medications: 1. Tylenol 650 as needed. 2. DuoNeb one neb q.4 hours as needed. 3. Dexamethasone 4 mg p.o. daily. 4. Lovenox 80 mg subcu b.i.d. 5. Folic acid 1 mg daily. 6. Ativan 1 mg every 4 hours as needed. 7. Morphine 2 mg every 4 hours as needed. 8. Olanzapine 10 mg p.o. at bedtime. 9. Omeprazole 20 mg daily. 10. Zofran 20 mg IV q.4 hours as needed. 11. Ceftriaxone 1 g q.24 hours. 12. Tamsulosin 0.4 mg p.o. daily. 13. Azithromycin 500 mg q.24 hours. 14. Diphenhydramine 25 mg p.o. at bedtime. ALLERGIES: No known drug allergies. SOCIAL HISTORY Currently his daughter lives with him who helps with some of his ADLs. He has become more dependent with his personal hygiene and meal prep since he has started with chemo. 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 His 8 years ago on hospice from cancer. Stopped smoking 16 yearss ago, 1ppd for many years. Stopped EtOH over 30 years ago. He has 2 children and 3 step children. MOLST: DNR/DNI. HCP: November, his daughter. Ambulates with a walker. FAMILY HISTORY No History of lung cancer ROS: As mentioned in the HPI PHYSICAL EXAM: Vitals: Temp 97.7, pulse rate 89, respiratory rate 20, oxygen saturation 95% on room air, and blood pressure 106/77. General: No acute distress, baseline facial tremor. HEENT: Pupils are equal, reactive, and anicteric. Head: Normocephalic. Oropharynx: Mucous membranes moist. Neck: Supple. No lymphadenopathy. Respiratory: Diminished breath sounds, rhonchorous bilaterally, prolonged expiratory phase. Cardiac: Regular rate and rhythm. Soft systolic murmur heard. Abdomen: Soft, nontender, and nondistended. Extremities: Pretibial edema, clubbing noted on upper and lower extremities. Neurologic: Alert and oriented x3. No focal neurologic deficits. LABORATORY DATA: White count 1.9, hemoglobin 10.5, hematocrit 31, platelets 38 , absolute neutrophils 1. INR 1.43. Sodium 138, potassium 3.6, chloride 106, bicarb 24, BUN 16, creatinine 0.69. Troponin bumped to 0.25. ASSESSMENT: This is a 71-year-old male with the past medical history of stage IV lung cancer with mets to the brain, status post radiation, currently undergoing chemotherapy, who presented to the emergency room with shortness of breath found to have bilateral pulmonary emboli despite on Xarelto, pleural effusion, and infiltrates. Clinically, the patient is improving. He is on room air. The concern is his prognosis. I spoke with Dr. Bradshaw's office, his prognosis on chemotherapy is on average 14 months and off chemotherapy would be dramatically short and he would be eligible for hospice with a principal diagnosis of stage IV lung cancer with metastatic disease. At this time, the patient is interested in hospice, but he is not sure if he wants to stop getting chemotherapy. RECOMMENDATION: I spoke with the [facility] to see if they can provide an informational session for the patient and the daughter. The daughter , Elyssa, who I spoke with as well is supportive of whatever decision he makes. She does state that she is stretched very thin helping care for him at home, being working a mom, also in school, and that she needs more assistance at home to care for him. I discussed with Case Management regarding providing them a list of private services. The other option if he does chemotherapy, if he cannot be cared for at home, then he needs go to a short-term rehab. Although I feel once the patient has more information about hospice, the reality of home with care, or the hospice residence is going to be more realistic for him with his poor prognosis. His pain seems controlled as well as his respiratory rate. In terms of his anxiety, his IV lorazepam has been discontinued and would agree with only doing oral medication for benzodiazepines. Thank you for this consultation. I will follow along with you. TIME SPENT: Greater than 90 minutes was spent doing this consultation, more than half the time was direct patient contact. [id number]/[facility] #: [id number] KATHIA
[2016-08-30] MEDS: OLANzapine TAB* 10 MG PO SCH (20:35)
--- NOTE | 2016-08-30 20:59 | PN ---
Subjective Date of Service: 08/30/16 Interval History: . patient very depressed and does not feel he can go home. limited support and he is interested in NH and hospice. continuing on lovenox and Abx -- wants to speak with palliative care / hospice team. . Family History: Unchanged from Admission Social History: Unchanged from Admission Past Medical History: Unchanged from Admission Objective Active Medications: . Acetaminophen (Tylenol Tab*) 650 mg PO Q4H PRN PRN Reason: FEVER/PAIN Albuterol/Ipratropium (Duoneb Neb.Shira*) 1 neb INH Q4H PRN PRN Reason: shortness of breath Dexamethasone (Decadron Tab*) 4 mg PO DAILY [facility] Last Admin: 08/30/16 08:26 Dose: 4 mg Diphenhydramine HCl (Benadryl Liq*) 25 mg PO BEDTIME PRN PRN Reason: insonmia Last Admin: 08/28/16 23:02 Dose: 25 mg Enoxaparin Sodium (Lovenox(*)) 80 mg SUBCUT Q12H [facility] Last Admin: 08/30/16 20:35 Dose: 80 mg Folic Acid (Folvite Tab*) 1 mg PO DAILY [facility] Last Admin: 08/30/16 08:25 Dose: 1 mg Ceftriaxone Sodium 1,000 mg/ (Sodium Chloride) 50 mls @ 200 mls/hr IVPB Q24H [facility] Last Admin: 08/30/16 15:48 Dose: 200 mls/hr Azithromycin 500 mg/ Sodium (Chloride) 250 mls @ 250 mls/hr IVPB Q24H [facility] Last Admin: 08/30/16 13:47 Dose: 250 mls/hr Lorazepam (Ativan Tab(*)) 1 mg PO Q4H PRN PRN Reason: ANXIETY Last Admin: 08/29/16 16:58 Dose: 1 mg Lorazepam (Ativan Tab(*)) 1 mg PO ONCE@DAILY PRN PRN Reason: INSOMNIA Last Admin: 08/29/16 02:11 Dose: 1 mg Morphine Sulfate (Morphine Inj (Syringe)*) 2 mg IV Q4H PRN PRN Reason: PAIN Olanzapine (Zyprexa Tab*) 10 mg PO BEDTIME [facility] Last Admin: 08/30/16 20:35 Dose: 10 mg Omeprazole (Prilosec Cap*) 20 mg PO DAILY [facility] Last Admin: 08/30/16 08:26 Dose: 20 mg Ondansetron HCl (Zofran Inj*) 4 mg IV Q4H PRN PRN Reason: NAUSEA/VOMITING Tamsulosin HCl (Flomax Cap*) 0.4 mg PO DAILY [facility] Last Admin: 08/30/16 08:25 Dose: 0.4 mg . Vital Signs 08/29/16 08/30/16 08/30/16 23:53 08:00 08:23 Temperature 97.7 F 97.7 F Pulse Rate 86 89 Respiratory 20 16 20 Rate Blood Pressure 130/86 187/104 (mmHg) O2 Sat by Pulse 96 95 Oximetry 08/30/16 08/30/16 08:36 11:52 Temperature 98.3 F Pulse Rate 85 Respiratory 18 Rate Blood Pressure 106/77 110/71 (mmHg) O2 Sat by Pulse 94 Oximetry Oxygen Devices in Use Now: Nasal Cannula Appearance: NAD; though very weak and frail Eyes: No Scleral Icterus Ears/Nose/Mouth/Throat: Clear Oropharnyx Neck: Trachea Midline Respiratory: Symmetrical Chest Expansion and Respiratory Effort Cardiovascular: NL Sounds; No Murmurs; No JVD Abdominal: NL Sounds; No Tenderness; No Distention Lymphatic: No Cervical Adenopathy Extremities: No Edema, - - tremor noted at rest (known) Neurological: Alert and Oriented x 3, NL Sensation Lines/Tubes/Other Access: Clean, Dry and Intact Peripheral IV Nutrition: Taking PO's Result Diagrams: 08/30/16 06:23 08/30/16 06:23 Additional Lab and Data: . Assess/Plan/Problems-Billing . Assessment: 71 yo man with stage IV lung cancer - s/p 4 rounds of chemotherapy with carboplatin Now with acute PE in setting of RLL pneumonia with tachy-arrhythmia. doing well on lovenox and antibiotics. does not feel he can go home; now for NH placement and possibly hospice . - Patient Problems (1) Major depression Current Visit: Yes Status: Acute Code(s): F32.9 - MAJOR DEPRESSIVE DISORDER , SINGLE EPISODE, UNSPECIFIED Comment: - major depression around his illness - "I want to " - palliative care consult requested - and appreciated - will start zoloft 50 mg PO QHS (2) Pulmonary embolism on long-term anticoagulation therapy Current Visit: Yes Status: Acute Priority: High Code(s): I26.99 - OTHER PULMONARY EMBOLISM WITHOUT ACUTE COR PULMONALE; Z79.01 - CONSTRUCTION RIGGER (CURRENT) USE OF ANTICOAGULANTS SNOMED Code(s): 290220503 Comment: - upgrade to lovenox - no warfarin - not hypoxic - can swithc to 1.5 mg/kg if easier (3) Lobar pneumonia, unspecified organism Current Visit: Yes Status: Acute Priority: High Code(s): J18.1 - LOBAR PNEUMONIA, UNSPECIFIED ORGANISM Comment: - contributed to PE - on antibiotics - duonebs prn - improving from this perspective (4) Aortic aneurysm Current Visit: No Status: Acute Priority: High Code(s): I71.9 - AORTIC ANEURYSM OF UNSPECIFIED SITE, WITHOUT RUPTURE Comment: AAA 4.7 cm in 09/2012. (5) Hyperlipidemia Current Visit: No Status: Acute Priority: Medium Code(s): E78.5 - HYPERLIPIDEMIA, UNSPECIFIED Comment: Continue statin. (6) Lung cancer Current Visit: No Status: Acute Code(s): C34.90 - MALIGNANT NEOPLASM OF UNSP PART OF UNSP BRONCHUS OR LUNG Comment: Stage IV (PUPPY WALKER mets) Undergoing chemotherapy in [place] with Dr. Bradshaw
[2016-08-30] MEDS: diPHENhydraMINE LIQ* 12.5 MG/5 ML UDC PO PRN (23:59)
[2016-08-31] MEDS: Morphine INJ* 2 MG/ML 1 ML CARPUJECT IV PRN ×2 (00:44→22:06)
[2016-08-31] MEDS ORDERED: Haloperidol INJ IV/IM* 5 MG/ML AMP IV SLOW PU PRN (02:54)
[2016-08-31] MEDS: Enoxaparin(*) 80 MG/0.8 ML SYR SUBCUT SCH ×2 (07:25→18:19)
[2016-08-31] MEDS: Omeprazole CAP* 20 MG PO SCH ×2 (07:26→07:36)
[2016-08-31] MEDS: Folic Acid TAB* 1 MG PO SCH ×2 (07:26→07:36)
[2016-08-31] MEDS: Sertraline* 50 MG TAB PO SCH ×2 (07:26→07:35)
[2016-08-31] MEDS: Tamsulosin CAP* 0.4 MG PO SCH ×3 (07:26→22:01)
[2016-08-31] MEDS: Dexamethasone TAB* 4 MG PO SCH (07:26)
--- NOTE | 2016-08-31 07:47 | PN ---
Subjective Date of Service: 08/31/16 Interval History: Patient reluctant to take his AM oral meds. He does not want any sertraline. He takes tamsulosin at bedtime at home. He deinies pain, cough, SOB. Appetite OK. No bowel c/o. Family History: Unchanged from Admission Social History: Unchanged from Admission Past Medical History: Unchanged from Admission Objective Active Medications: Acetaminophen (Tylenol Tab*) 650 mg PO Q4H PRN PRN Reason: FEVER/PAIN Albuterol/Ipratropium (Duoneb Neb.Shira*) 1 neb INH Q4H PRN PRN Reason: shortness of breath Azithromycin (Zithromax Tab*) 250 mg PO DAILY [facility] Dexamethasone (Decadron Tab*) 4 mg PO DAILY [facility] Last Admin: 08/31/16 07:26 Dose: 4 mg Diphenhydramine HCl (Benadryl Liq*) 25 mg PO BEDTIME PRN PRN Reason: insonmia Last Admin: 08/30/16 23:59 Dose: 25 mg Enoxaparin Sodium (Lovenox(*)) 80 mg SUBCUT Q12H [facility] Stop: 08/31/16 23:30 Last Admin: 08/31/16 07:25 Dose: 80 mg Enoxaparin Sodium (Lovenox(*)) 110 mg SUBCUT DAILY [facility] Haloperidol Lactate (Haldol Inj Iv/Im*) 2 mg IV SLOW PU Q6H PRN PRN Reason: AGITATION Ceftriaxone Sodium 1,000 mg/ (Sodium Chloride) 50 mls @ 200 mls/hr IVPB Q24H [facility] Last Admin: 08/30/16 15:48 Dose: 200 mls/hr Lorazepam (Ativan Tab(*)) 1 mg PO Q4H PRN PRN Reason: ANXIETY Last Admin: 08/29/16 16:58 Dose: 1 mg Lorazepam (Ativan Tab(*)) 1 mg PO ONCE@DAILY PRN PRN Reason: INSOMNIA Last Admin: 08/29/16 02:11 Dose: 1 mg Morphine Sulfate (Morphine Inj (Syringe)*) 2 mg IV Q4H PRN PRN Reason: PAIN Last Admin: 08/31/16 00:44 Dose: 2 mg Olanzapine (Zyprexa Tab*) 5 mg PO BEDTIME [facility] Ondansetron HCl (Zofran Inj*) 4 mg IV Q4H PRN PRN Reason: NAUSEA/VOMITING Tamsulosin HCl (Flomax Cap*) 0.4 mg PO BEDTIME [facility] Vital Signs 08/30/16 08/30/16 08/30/16 08:00 08:23 08:36 Temperature 97.7 F Pulse Rate 89 Respiratory 16 20 Rate Blood Pressure 187/104 106/77 (mmHg) O2 Sat by Pulse 95 Oximetry 08/30/16 08/30/16 08/30/16 11:52 20:35 23:35 Temperature 98.3 F Pulse Rate 85 69 Respiratory 18 20 17 Rate Blood Pressure 110/71 110/76 (mmHg) O2 Sat by Pulse 94 95 Oximetry 08/30/16 08/31/16 08/31/16 23:59 00:44 00:49 Temperature Pulse Rate 93 Respiratory 20 18 16 Rate Blood Pressure (mmHg) O2 Sat by Pulse 98 Oximetry 08/31/16 08/31/16 08/31/16 00:59 01:44 07:12 Temperature Pulse Rate Respiratory 16 16 16 Rate Blood Pressure (mmHg) O2 Sat by Pulse Oximetry Oxygen Devices in Use Now: None Appearance: Alert, in a chair. Neutral affect. Looks comfortable. Eyes: No Scleral Icterus Ears/Nose/Mouth/Throat: Clear Oropharnyx, Mucous Membranes Moist Neck: NL Appearance and Movements; NL JVP, No Thyroid Enlargement, Masses Respiratory: Symmetrical Chest Expansion and Respiratory Effort, Clear to Auscultation, Clear to Percussion Cardiovascular: NL Sounds; No Murmurs; No JVD, RRR, No Edema, - Extremities: No Edema, No Clubbing, Cyanosis, - Skin: No Rash or Ulcers, No Nodules or Sclerosis, - Neurological: Alert and Oriented x 3, NL Sensation, - - Moderate whole body shaking. Pt states this is familial and chronic. Result Diagrams: 08/30/16 06:23 08/30/16 06:23 Additional Lab and Data: . Assess/Plan/Problems-Billing . Assessment: 71 yo man with stage IV lung cancer - s/p 4 rounds of chemotherapy with carboplatin Now with acute PE in setting of RLL pneumonia with tachy-arrhythmia. doing well on lovenox and antibiotics. does not feel he can go home; now for NH placement and possibly hospice . 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 Prognosis given by Dr. Bradshaw as 14 months with chemo. Patient to have Hospice informational on Saturday 09/02. Continue DXM for brain mets. (2) Pulmonary embolism on long-term anticoagulation therapy Current Visit: Yes Status: Acute Priority: High Code(s): I26.99 - OTHER PULMONARY EMBOLISM WITHOUT ACUTE COR PULMONALE; Z79.01 - USP (CURRENT) USE OF ANTICOAGULANTS SNOMED Code(s): 045453544 Comment: Change to enoxaparin 1.5 mg/kg/24 hr on 09/01. (3) Pneumonia Current Visit: Yes Status: Acute Code(s): J18.9 - PNEUMONIA, UNSPECIFIED ORGANISM SNOMED Code(s): 046055925 Comment: Change to oral azith. (4) Major depression Current Visit: Yes Status: Acute Code(s): F32.9 - MAJOR DEPRESSIVE DISORDER , SINGLE EPISODE, UNSPECIFIED SNOMED Code(s): 020122988 Comment: - major depression around his illness - palliative care consult appreciated Patient does not want to take sertraline, so I stopped it.
[2016-08-31] MEDS: Azithromycin TAB* 250 MG PO SCH (13:36)
[2016-08-31] MEDS: cefTRIAXone VIAL(*) 1,000 MG in NS 0.9% 50 ML* 50 ML IVPB SCH (15:12)
[2016-08-31] MEDS: diPHENhydraMINE LIQ* 12.5 MG/5 ML UDC PO PRN (22:00)
[2016-08-31] MEDS: OLANzapine TAB* 5 MG PO SCH (22:01)
[2016-08-31] MEDS ORDERED: Ziprasidone IM INJ* 20 MG/ML VIAL IM ONE (23:00)
[2016-09-01] MEDS ORDERED: Haloperidol INJ IV/IM* 5 MG/ML AMP IV SLOW PU PRN (07:23)
--- NOTE | 2016-09-01 07:46 | PN ---
Subjective Date of Service: 09/01/16 Interval History: Patient offers no c/o, but is not responding very coherently. Family History: Unchanged from Admission Social History: Unchanged from Admission Past Medical History: Unchanged from Admission Objective Active Medications: Acetaminophen (Tylenol Tab*) 650 mg PO Q4H PRN PRN Reason: FEVER/PAIN Albuterol/Ipratropium (Duoneb Neb.Shira*) 1 neb INH Q4H PRN PRN Reason: shortness of breath Azithromycin (Zithromax Tab*) 250 mg PO DAILY [facility] Last Admin: 08/31/16 13:36 Dose: 250 mg Dexamethasone (Decadron Tab*) 4 mg PO DAILY [facility] Last Admin: 08/31/16 07:26 Dose: 4 mg Diphenhydramine HCl (Benadryl Liq*) 25 mg PO BEDTIME PRN PRN Reason: insonmia Last Admin: 08/31/16 22:00 Dose: 25 mg Enoxaparin Sodium (Lovenox(*)) 110 mg SUBCUT DAILY [facility] Haloperidol Lactate (Haldol Inj Iv/Im*) 5 mg IV SLOW PU Q6H PRN PRN Reason: AGITATION Hydroxyzine HCl (Atarax Tab*) 50 mg PO Q6H [facility] Ceftriaxone Sodium 1,000 mg/ (Sodium Chloride) 50 mls @ 200 mls/hr IVPB Q24H [facility] Last Admin: 08/31/16 15:12 Dose: 200 mls/hr Olanzapine (Zyprexa Tab*) 5 mg PO BEDTIME [facility] Last Admin: 08/31/16 22:01 Dose: 5 mg Ondansetron HCl (Zofran Inj*) 4 mg IV Q4H PRN PRN Reason: NAUSEA/VOMITING Tamsulosin HCl (Flomax Cap*) 0.4 mg PO BEDTIME [facility] Last Admin: 08/31/16 22:01 Dose: 0.4 mg Vital Signs 08/31/16 08/31/16 08/31/16 11:11 15:23 21:23 Pulse Rate 71 87 87 Respiratory 20 16 18 Rate Blood Pressure 134/101 122/82 (mmHg) O2 Sat by Pulse 93 97 98 Oximetry 08/31/16 08/31/16 08/31/16 22:00 22:06 22:10 Pulse Rate Respiratory 20 20 20 Rate Blood Pressure (mmHg) O2 Sat by Pulse Oximetry 08/31/16 08/31/16 23:00 23:06 Pulse Rate Respiratory 20 20 Rate Blood Pressure (mmHg) O2 Sat by Pulse Oximetry Oxygen Devices in Use Now: None Appearance: Alert, in a chair leaning his head on his R hand. Mod whole body shaking. Looks uncomfortable. Eyes: No Scleral Icterus Ears/Nose/Mouth/Throat: Clear Oropharnyx, Mucous Membranes Moist Neck: NL Appearance and Movements; NL JVP, No Thyroid Enlargement, Masses Respiratory: Symmetrical Chest Expansion and Respiratory Effort, Clear to Auscultation, Clear to Percussion Cardiovascular: No Edema, - - distant heart sounds, rapid Extremities: No Edema, No Clubbing, Cyanosis, - Skin: No Rash or Ulcers, No Nodules or Sclerosis, - Neurological: NL Sensation - Poor verbal responses, ? if oriented. Result Diagrams: 08/30/16 06:23 08/30/16 06:23 Additional Lab and Data: . Assess/Plan/Problems-Billing . Assessment: 71 yo man with stage IV lung cancer - s/p 4 rounds of chemotherapy with carboplatin Now with acute PE in setting of RLL pneumonia with tachy-arrhythmia. doing well on lovenox and antibiotics. does not feel he can go home; now for NH placement and possibly hospice . 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 Prognosis given by Dr. Bradshaw as 14 months with chemo. Patient to have Hospice informational on Saturday 09/02. Continue DXM for brain mets. Patient in poor clinical condition due to his mental status and poor intake of food and liquids. (2) Pulmonary embolism on long-term anticoagulation therapy Current Visit: Yes Status: Acute Priority: High Code(s): I26.99 - OTHER PULMONARY EMBOLISM WITHOUT ACUTE COR PULMONALE; Z79.01 - HALF-WAY (CURRENT) USE OF ANTICOAGULANTS SNOMED Code(s): 943237313 Comment: Change to enoxaparin 1.5 mg/kg/24 hr on 09/01. (3) Pneumonia Current Visit: Yes Status: Acute Code(s): J18.9 - PNEUMONIA, UNSPECIFIED ORGANISM SNOMED Code(s): 205936708 Comment: Last day of oral azith is 09/02. (4) Major depression Current Visit: Yes Status: Acute Code(s): F32.9 - MAJOR DEPRESSIVE DISORDER , SINGLE EPISODE, UNSPECIFIED SNOMED Code(s): 038895153 Comment: - major depression around his illness - palliative care consult appreciated Patient does not want to take sertraline, so I stopped it. Dr. Ashley contacted 08/31, will see pt 09/01. Patient was combative night of 08/31-09/01, given Geodon, slept 3 hrs only. Start hydroxyzine 50 mg q 6 hr 09/01 for anxiolytic effect.
[2016-09-01] MEDS: Dexamethasone TAB* 4 MG PO SCH (08:38)
[2016-09-01] MEDS: Metoprolol Tartrate TAB* 25 MG PO SCH ×3 (08:38→21:39)
[2016-09-01] MEDS: hydrOXYzine HCL TAB* 50 MG PO SCH ×4 (08:38→21:40)
[2016-09-01] MEDS: Azithromycin TAB* 250 MG PO SCH (08:38)
[2016-09-01] MEDS ORDERED: Enoxaparin(*) 150 MG/ML 1 ML SYRINGE SUBCUT SCH (09:00)
[2016-09-01] MEDS: Sertraline* 50 MG TAB PO SCH (10:53)
[2016-09-01] MEDS: cefTRIAXone VIAL(*) 1,000 MG in NS 0.9% 50 ML* 50 ML IVPB SCH (14:28)
--- NOTE | 2016-09-01 14:30 | CONS ---
CONSULTATION REPORT: DATE OF ADMISSION: 08/28/16 ATTENDING PHYSICIAN: Eliot Araujo MD. CONSULTING PHYSICIAN: Jason Ashley MD with psychiatry. REASON FOR CONSULT: The patient with end-stage lung cancer with metastasis, has been endorsing depressive symptoms and acting in an agitated fashion and did at one point endorse suicidal ideations. PSYCHIATRIC HISTORY: HISTORY OF PRESENT ILLNESS: The patient is a 71-year-old white gentleman who was brought to the emergency room by EMS for rapid heart rate, who has been hospitalized on the medical unit since the 28 of August, who Psychiatry is being asked to see after he expressed suicidal ideations without specific plan. 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 At this point, there are questions in terms of disposition as his 2 daughters are expressing that he is unable to care for himself in the home and they feel that hospice placement may be beneficial. From what I gather, the patient has been vacillating between accepting this and at times insisting on returning to his home. Prior to entering his room, I do have a discussion with his nurse who indicates that he had periods of agitation and combativeness and that he often refuses oral medications and only eats limited amounts of food. Next, I speak with his stepdaughter from his second marriage whose name is Izabela, who is present having arrived from her home in [place]. She indicates that he was somewhat paranoid with her when she arrived this morning. He apparently was insisting on going home and expressed something to the effect that Izabela was somehow working with the primary team to prevent his discharge from the hospital. Interestingly, when I met with the patient he denied any symptoms of paranoia. I asked him specifically about suicidal ideation, which he admits to endorsing but he states that he has reevaluated this. He states "I have 2 daughters that love me very much and several grandchildren, I would never wanna do anything to make them hurt." He does endorse several symptoms of depression including dysthymic mood, anhedonia, lack of energy, poor concentration and poor appetite. I remind him that he had refused several doses of antidepressant to which he responds that he was unaware that he had been started on this treatment after explaining the rational behind treatment and going over what his expectations might be he actually does accept resumption of low dose antidepressant medication. With respect to the disposition, he is stating at this time that his preference is to go to a hospice facility indicating that he does not want to place an undue burden on his daughter, Elyssa, who happens to live with him. I was told by his stepdaughter that the primary team is trying to facilitate the meeting between the patient and his 2 daughters in which a final decision might be made in terms of where to place him. The patient states that he would welcome such a meeting and that his intention at this time is to accept referral to a hospice program. My understanding from his stepdaughter Izabela is that she would prefer for him to return home and receive services in the home, but she understands that his biological daughters have more say in particular since one of them actually lives in the residence. PAST PSYCHIATRIC HISTORY: The patient has never had any history of depression. He has never seen a psychiatrist or received counseling or therapy. He has never been on antidepressive medication in the past. He has never been psychiatrically hospitalized. SUBSTANCE ABUSE HISTORY: The patient is a recovered alcoholic, having been clean and sober from alcohol for well over 30 years. Remotely, he was a cigarette smoker, but has been abstinent from tobacco products for over 30 years as well. He denies any history of illicit substance abuse. gastroesophageal reflux disorder. PAST MEDICAL HISTORY: Significant for a lung mass diagnosed as a lung adenocarcinoma previously undergoing chemotherapy by Dr. Bradshaw at [facility]. He has also had a history of prostate cancer in remission, hyperlipidemia, abdominal aortic aneurysm for the past 3 years, and recent DVTs. OUTPATIENT MEDICATIONS: Include: 1. Xarelto 20 mg daily. 2. Decadron 4 mg 3 times daily. 3. Folic acid 1 mg by mouth daily. 4. Ativan p.r.n. for insomnia. 5. Olanzapine 10 mg by mouth at bedtime. 6. Omeprazole 20 mg by mouth daily. 7. Tamsulosin 0.4 mg daily. ALLERGIES: He has no known drug allergies. FAMILY HISTORY: Negative for emotional or behavioral problems. SOCIAL HISTORY: The patient is from the Town [place]. He has had 2 marriages , the first resulting in 2 daughters named Elyssa and Merrick. My understanding is that Elyssa and her daughter live with the patient and that Merrick is on her way from [place] where she currently resides. His second herself of cancer approximately 8 years ago and the patient was her main caregiver. Her daughter Izabela is present and very supportive. The patient enjoys playing tennis and belong to a group of people that would routinely have coffee and go to movies together until very recently he was quite socially active. He has no history of legal problems. 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 He does have a college degree in computer science. MENTAL STATUS EXAM: The patient is an ageing white male with somewhat ashen colored skin. He does look somatic and ill. He is lying supine in his bed, but makes good eye contact. He welcomes me. He is calm, cooperative, and easy to establish a report with. Speech has normal rate, tone, and volume. His mood is depressed with a constricted affect. Thought process at this time is lucid and linear, although I gather he has had several times during this hospitalization of acute confusion and agitation. His thought content is significant for a desire to have a family meeting with his children and to make a final decision on placement and as previously mentioned he is leaning towards hospice care. He is denying auditory or visual hallucinations. Insight and judgment at this time appears to be intact given his willingness to resume antidepressant therapy. Cognitively, he is awake and alert with what would appears to be an average intellect. DIAGNOSES: Radiant I: Major depressive disorder single episode, severe with psychotic features. Radiant II: Deferred. ASSESSMENT: The patient is a 71-year-old white male with a significant history of lung cancer with metastasis to the brain who is admitted to the medical service and awaiting placement perhaps in hospice care and who is presenting with periods of agitation as well as depressed mood and transient suicidal ideations. As previously noted, he is absolutely denying suicidal thoughts at this time and he does show good judgement in the sense that he is willing to resume antidepressive therapy. I think a trial with sertraline is well warranted and we will start this at a therapeutic dose. I have had a discussion with the patient's family as well as Dr. Araujo and questions remain about the patient's capacity to make medical decisions. At this narrow slice of time, I do believe that the patient does have capacity in that he understands the treatment being offered as well as the benefits, risks, and alternatives. This; however, is a fluid situation and Psychiatry will be following closely to see if there are any changes in his decision making abilities. PLAN: Psychiatry will start the patient on a trial of sertraline 50 mg p.o. daily. He is already taking olanzapine at night, which we very much encouraged him to continue. We are recommending that the patient's family come in for a formal meeting about discharge placement issues. At this time, the patient is leaning towards hospice placement, which given his behavioral inconsistency I think would be reasonable. Psychiatry will be following closely and assessing him periodically for decision making capacity. Thank you very much for allowing us opportunity to participate in his care. [id number]/CPS #: [id number]
--- NOTE | 2016-09-01 17:24 | PN ---
Progress Note - Progress Note Note: I had a lengthy meeting with daughters Elyssa and Jalyn. They showed me his [facility] patient portal. 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 He had MR brain 07/17/16 showing 2 mm L frontal and tiny R frontal enhancing lesions. They agree to Hospice care. I ordered MR brain for 09/02.
[2016-09-01] MEDS: diPHENhydraMINE LIQ* 12.5 MG/5 ML UDC PO PRN (21:32)
[2016-09-01] MEDS: OLANzapine TAB* 5 MG PO SCH (21:39)
[2016-09-01] MEDS: Tamsulosin CAP* 0.4 MG PO SCH (21:42)
[2016-09-02] MEDS ORDERED: NS 0.9% 1000 ML* 1,000 ML IV ONE (01:02)
[2016-09-02] MEDS: hydrOXYzine HCL TAB* 50 MG PO SCH ×4 (02:28→19:42)
[2016-09-02 07:37] LABS: Hematocrit 24 % (42-52); Hemoglobin 8.2 g/dl (14.0-18.0); Mean Corpuscular HGB Conc 34 g/dl (31-36); Mean Corpuscular Hemoglobin 30 pg (27-31); Mean Corpuscular Volume 88 fL (80-94); Mean Platelet Volume 8 um3 (7.4-10.4); Red Blood Count 2.74 10^6/ul (4.0-5.4); Red Cell Distribution Width 19 % (10.5-15); White Blood Count 1.7 10^3/ul (3.5-10.8)
[2016-09-02 07:40] LABS: Comments Flag Yes
[2016-09-02 07:55] LABS: Add Diff/Slide Review? Slide Review Added
--- NOTE | 2016-09-02 08:41 | PN ---
Subjective Date of Service: 09/02/16 Interval History: No c/o. Denies pain, cough, SOB. He was not sure if he would eat breakfast. Family History: Unchanged from Admission Social History: Unchanged from Admission Past Medical History: Unchanged from Admission Objective Active Medications: Acetaminophen (Tylenol Tab*) 650 mg PO Q4H PRN PRN Reason: FEVER/PAIN Albuterol/Ipratropium (Duoneb Neb.Shira*) 1 neb INH Q4H PRN PRN Reason: shortness of breath Azithromycin (Zithromax Tab*) 250 mg PO DAILY [facility] Stop: 09/02/16 23:30 Last Admin: 09/01/16 08:38 Dose: Not Given Dexamethasone (Decadron Tab*) 4 mg PO DAILY [facility] Last Admin: 09/01/16 08:38 Dose: Not Given Diphenhydramine HCl (Benadryl Liq*) 25 mg PO BEDTIME PRN PRN Reason: insonmia Last Admin: 09/01/16 21:32 Dose: 25 mg Enoxaparin Sodium (Lovenox(*)) 110 mg SUBCUT DAILY [facility] Haloperidol Lactate (Haldol Inj Iv/Im*) 5 mg IV SLOW PU Q6H PRN PRN Reason: AGITATION Hydroxyzine HCl (Atarax Tab*) 50 mg PO Q6H [facility] Last Admin: 09/02/16 02:28 Dose: 50 mg Ceftriaxone Sodium 1,000 mg/ (Sodium Chloride) 50 mls @ 200 mls/hr IVPB Q24H [facility] Last Admin: 09/01/16 14:28 Dose: 200 mls/hr Metoprolol Tartrate (Lopressor Tab*) 25 mg PO BID [facility] Last Admin: 09/01/16 21:39 Dose: 25 mg Olanzapine (Zyprexa Tab*) 5 mg PO BEDTIME [facility] Last Admin: 09/01/16 21:39 Dose: 5 mg Ondansetron HCl (Zofran Inj*) 4 mg IV Q4H PRN PRN Reason: NAUSEA/VOMITING Sertraline HCl (Zoloft*) 50 mg PO DAILY [facility] Last Admin: 09/01/16 10:53 Dose: 50 mg Tamsulosin HCl (Flomax Cap*) 0.4 mg PO BEDTIME [facility] Last Admin: 09/01/16 21:42 Dose: Not Given Vital Signs 09/01/16 09/01/16 09/01/16 12:00 18:39 20:00 Temperature 97.4 F Pulse Rate 80 81 Respiratory 24 18 Rate Blood Pressure 102/63 (mmHg) O2 Sat by Pulse 92 Oximetry 09/01/16 09/01/16 09/02/16 21:32 22:32 00:08 Temperature Pulse Rate 85 Respiratory 18 20 20 Rate Blood Pressure 77/46 (mmHg) O2 Sat by Pulse 89 Oximetry 09/02/16 09/02/16 09/02/16 00:55 01:00 02:14 Temperature Pulse Rate Respiratory Rate Blood Pressure 80/52 82/50 (mmHg) O2 Sat by Pulse 88 91 88 Oximetry 09/02/16 09/02/16 09/02/16 02:15 02:24 04:24 Temperature Pulse Rate 77 Respiratory 20 Rate Blood Pressure 82/52 104/64 (mmHg) O2 Sat by Pulse 96 92 Oximetry 09/02/16 09/02/16 09/02/16 05:25 07:37 08:32 Temperature 98.0 F Pulse Rate 79 Respiratory 17 Rate Blood Pressure 106/64 (mmHg) O2 Sat by Pulse 90 96 96 Oximetry Oxygen Devices in Use Now: None Appearance: Alert, supine in bed. Neutral affect. Looks comfortable. Eyes: No Scleral Icterus Ears/Nose/Mouth/Throat: Clear Oropharnyx, Mucous Membranes Moist Neck: NL Appearance and Movements; NL JVP, No Thyroid Enlargement, Masses Respiratory: Symmetrical Chest Expansion and Respiratory Effort, Clear to Auscultation, Clear to Percussion Cardiovascular: NL Sounds; No Murmurs; No JVD, RRR, No Edema, - Extremities: No Edema, No Clubbing, Cyanosis, - Skin: No Rash or Ulcers, No Nodules or Sclerosis, - Neurological: Alert and Oriented x 3, NL Sensation Result Diagrams: 09/02/16 07:28 08/30/16 06:23 Additional Lab and Data: . Assess/Plan/Problems-Billing . Assessment: 71 yo man with stage IV lung cancer - s/p 4 rounds of chemotherapy with carboplatin Now with acute PE in setting of RLL pneumonia with tachy-arrhythmia. doing well on lovenox and antibiotics. does not feel he can go home; now for NH placement and possibly hospice . 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 Adenoca of lung, dx 06/05/16 by bronchoscopy in [place]. Prognosis given by Dr. Bradshaw as 14 months with chemo. Patient to have Hospice informational on Saturday 09/02. Continue DXM taper for brain mets. Patient in poor clinical condition due to his mental status and poor intake of food and liquids. (2) Pulmonary embolism on long-term anticoagulation therapy Current Visit: Yes Status: Acute Priority: High Code(s): I26.99 - OTHER PULMONARY EMBOLISM WITHOUT ACUTE COR PULMONALE; Z79.01 - SOCKET PULLER (CURRENT) USE OF ANTICOAGULANTS SNOMED Code(s): 095825978 Comment: Failed (?) Change to enoxaparin 1.5 mg/kg/24 hr on 09/01. Hold enoxaparin 09/02 due to low platelets, order to resume 09/03, parameter to hold if platelets under 30. (3) Pneumonia Current Visit: Yes Status: Acute Code(s): J18.9 - PNEUMONIA, UNSPECIFIED ORGANISM SNOMED Code(s): 389796008 Comment: Last day of oral azith is 09/02. (4) Major depression Current Visit: Yes Status: Acute Code(s): F32.9 - MAJOR DEPRESSIVE DISORDER , SINGLE EPISODE, UNSPECIFIED SNOMED Code(s): 178455505 Comment: - major depression around his illness - palliative care consult appreciated Patient does not want to take sertraline, so I stopped it. Dr. Ashley contacted 08/31, will see pt 09/01. Patient was combative night of 08/31-09/01, given Geodon, slept 3 hrs only. Start hydroxyzine 50 mg q 6 hr 09/01 for anxiolytic effect. (5) Pancytopenia Current Visit: Yes Status: Acute Code(s): D61.818 - OTHER PANCYTOPENIA SNOMED Code(s): 552893862 Comment: I called Dr. Bradshaw's office ([phone]) and was told his last chemo was carbo 08/22/16. Platelet transfusion 09/02, CBC 3 PM 09/02 and 09/03. (6) Rectal bleeding Current Visit: Yes Status: Acute Code(s): K62.5 - HEMORRHAGE OF ANUS AND RECTUM SNOMED Code(s): 96413073 Comment: Platelet transfusion 09/02, CBC 3 PM 09/02 and 09/03. T&H 2 UPC's. Enoxaparin not given 09/02.
[2016-09-02] MEDS: Azithromycin TAB* 250 MG PO SCH (09:04)
[2016-09-02] MEDS: Dexamethasone TAB* 4 MG PO SCH (09:05)
[2016-09-02] MEDS: Sertraline* 50 MG TAB PO SCH (09:05)
[2016-09-02] MEDS: Metoprolol Tartrate TAB* 25 MG PO SCH ×2 (09:10→19:45)
--- NOTE | 2016-09-02 11:18 | PN ---
Subjective Date of Service: 09/02/16 Interval History: This is an addendum to today's progress note. Family History: Unchanged from Admission Social History: Unchanged from Admission Past Medical History: Unchanged from Admission Objective Active Medications: Acetaminophen (Tylenol Tab*) 650 mg PO Q4H PRN PRN Reason: FEVER/PAIN Albuterol/Ipratropium (Duoneb Neb.Shira*) 1 neb INH Q4H PRN PRN Reason: shortness of breath Azithromycin (Zithromax Tab*) 250 mg PO DAILY [facility] Stop: 09/02/16 23:30 Last Admin: 09/02/16 09:04 Dose: 250 mg Dexamethasone (Decadron Tab*) 2 mg PO DAILY [facility] Last Admin: 09/02/16 09:05 Dose: 2 mg Diphenhydramine HCl (Benadryl Liq*) 25 mg PO BEDTIME PRN PRN Reason: insonmia Last Admin: 09/01/16 21:32 Dose: 25 mg Enoxaparin Sodium (Lovenox(*)) 110 mg SUBCUT DAILY [facility] Haloperidol Lactate (Haldol Inj Iv/Im*) 5 mg IV SLOW PU Q6H PRN PRN Reason: AGITATION Hydroxyzine HCl (Atarax Tab*) 50 mg PO Q6H [facility] [place] Last Admin: 09/02/16 09:04 Dose: 50 mg Ceftriaxone Sodium 1,000 mg/ (Sodium Chloride) 50 mls @ 200 mls/hr IVPB Q24H [facility] Last Admin: 09/01/16 14:28 Dose: 200 mls/hr Metoprolol Tartrate (Lopressor Tab*) 25 mg PO BID [facility] Last Admin: 09/02/16 09:10 Dose: Not Given Olanzapine (Zyprexa Tab*) 5 mg PO BEDTIME [facility] Last Admin: 09/01/16 21:39 Dose: 5 mg Ondansetron HCl (Zofran Inj*) 4 mg IV Q4H PRN PRN Reason: NAUSEA/VOMITING Sertraline HCl (Zoloft*) 50 mg PO DAILY [facility] [place] Last Admin: 09/02/16 09:05 Dose: 50 mg Tamsulosin HCl (Flomax Cap*) 0.4 mg PO BEDTIME [facility] Last Admin: 09/01/16 21:42 Dose: Not Given Vital Signs 09/01/16 09/01/16 09/01/16 12:00 18:39 20:00 Temperature 97.4 F Pulse Rate 80 81 Respiratory 24 18 Rate Blood Pressure 102/63 (mmHg) O2 Sat by Pulse 92 Oximetry 09/01/16 09/01/16 09/02/16 21:32 22:32 00:08 Temperature Pulse Rate 85 Respiratory 18 20 20 Rate Blood Pressure 77/46 (mmHg) O2 Sat by Pulse 89 Oximetry 09/02/16 09/02/16 09/02/16 00:55 01:00 02:14 Temperature Pulse Rate Respiratory Rate Blood Pressure 80/52 82/50 (mmHg) O2 Sat by Pulse 88 91 88 Oximetry 09/02/16 09/02/16 09/02/16 02:15 02:24 04:24 Temperature Pulse Rate 77 Respiratory 20 Rate Blood Pressure 82/52 104/64 (mmHg) O2 Sat by Pulse 96 92 Oximetry 09/02/16 09/02/16 09/02/16 05:25 07:37 08:32 Temperature 98.0 F Pulse Rate 79 Respiratory 17 Rate Blood Pressure 106/64 (mmHg) O2 Sat by Pulse 90 96 96 Oximetry 09/02/16 10:27 Temperature Pulse Rate Respiratory 18 Rate Blood Pressure (mmHg) O2 Sat by Pulse Oximetry Oxygen Devices in Use Now: None Result Diagrams: 09/02/16 07:28 08/30/16 06:23 Additional Lab and Data: . Assess/Plan/Problems-Billing . Assessment: 71 yo man with stage IV lung cancer - s/p 4 rounds of chemotherapy with carboplatin Now with acute PE in setting of RLL pneumonia with tachy-arrhythmia. doing well on lovenox and antibiotics. does not feel he can go home; now for NH placement and possibly hospice . 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 Adenoca of lung, dx 06/05/16 by bronchoscopy in [place]. Prognosis given by Dr. Bradshaw as 14 months with chemo. Patient to have Hospice informational on Saturday 09/02. Continue DXM taper for brain mets. Patient in poor clinical condition due to his mental status and poor intake of food and liquids. Verbal report from Dr. Bradshaw's office is that the last MR brain was on 07/10/16 and showed small enhancng lesion in frontal lobe (must be same MR I reported as done on 07/17.) (2) Pulmonary embolism on long-term anticoagulation therapy Current Visit: Yes Status: Acute Priority: High Code(s): I26.99 - OTHER PULMONARY EMBOLISM WITHOUT ACUTE COR PULMONALE; Z79.01 - SCALE BALANCER (CURRENT) USE OF ANTICOAGULANTS SNOMED Code(s): 169919961 Comment: Failed (?) Change to enoxaparin 1.5 mg/kg/24 hr on 09/01. Hold enoxaparin 09/02 due to low platelets, order to resume 09/03, parameter to hold if platelets under 30. (3) Pneumonia Current Visit: Yes Status: Acute Code(s): J18.9 - PNEUMONIA, UNSPECIFIED ORGANISM SNOMED Code(s): 694190694 Comment: Last day of oral azith is 09/02. (4) Major depression Current Visit: Yes Status: Acute Code(s): F32.9 - MAJOR DEPRESSIVE DISORDER , SINGLE EPISODE, UNSPECIFIED SNOMED Code(s): 690160024 Comment: - major depression around his illness - palliative care consult appreciated Patient does not want to take sertraline, so I stopped it. Dr. Ashley contacted 08/31, will see pt 09/01. Patient was combative night of 08/31-09/01, given Geodon, slept 3 hrs only. Start hydroxyzine 50 mg q 6 hr 09/01 for anxiolytic effect. (5) Pancytopenia Current Visit: Yes Status: Acute Code(s): D61.818 - OTHER PANCYTOPENIA SNOMED Code(s): 285254992 Comment: I called Dr. Bradshaw's office ([phone]) and was told his last chemo was carbo 08/22/16. Pancytopenia is due to his chemotherapy. Platelet transfusion 09/02, CBC 3 PM 09/02 and 09/03. (6) Rectal bleeding Current Visit: Yes Status: Acute Code(s): K62.5 - HEMORRHAGE OF ANUS AND RECTUM SNOMED Code(s): 10905579 Comment: Platelet transfusion 09/02, CBC 3 PM 09/02 and 09/03. T&H 2 UPC's. Enoxaparin not given 09/02.
--- NOTE | 2016-09-02 13:45 | CONSULT ---
Identification - Patient Identification Reason for Psychiatric Consultation: Suicidal Ideation -: Patient is a 71 year old, M admitted on 08/28/16. - MHU Identification Employment Status: Disabled Hx Psychiatric Hospitalization: No History - Objective HPI: The patient is revisited in his room, accompanied by his daughter Jalyn, who has arrived from [place]. The patient denies any further SI. According to the MAR he has been compliant with both olanzapine and sertraline and has had fewer instances of acting out on the medical unit. He continues to express his desire to be transferred to a hospice program rather than returning home and being a burden to his family. The patient is calm and cooperative throughout the interaction. He denies being in physical pain. Lab Results: Laboratory Tests 08/29/16 08/29/16 08/30/16 05:29 05:29 06:23 WBC 1.8 L RBC 3.40 L Hgb 9.9 L Hct 31 L MCV 91 MCH 29 MCHC 32 RDW 20 H Plt Count 43 L MPV 8 Neut % (Auto) 48.8 Lymph % (Auto) 49.4 H Harnett % (Auto) 1.2 Eos % (Auto) 0.3 Baso % (Auto) 0.3 Absolute Neuts (auto) 0.9 L* Absolute Lymphs (auto) 0.9 L Absolute Monos (auto) 0 Absolute Eos (auto) 0 Absolute Basos (auto) 0 Absolute Nucleated RBC 0 Nucleated RBC % 0 Hem Pathologist Commnt Sodium 134 138 Potassium 4.2 3.6 Chloride 107 106 Carbon Dioxide 22 24 Anion Gap 5 8 BUN 21 16 Creatinine 0.57 L 0.69 Est GFR ( Amer) 181.2 145.4 Est GFR (Non-Af Amer) 140.9 113.0 BUN/Creatinine Ratio 36.8 H 23.2 H Glucose 77 105 H Lactic Acid Calcium 7.8 L 8.6 Magnesium 2.5 Troponin I 0.14 H* Blood Type Antibody Screen 08/30/16 08/30/16 09/02/16 06:23 06:23 07:28 WBC 1.9 L 1.7 L RBC 3.49 L 2.74 L Hgb 10.5 L 8.2 L Hct 31 L 24 L MCV 89 88 MCH 30 30 MCHC 34 34 RDW 20 H 19 H Plt Count 38 L 21 L MPV 7 L 8 Neut % (Auto) 49.8 53.0 Lymph % (Auto) 47.6 H 43.2 Harnett % (Auto) 2.3 3.4 Eos % (Auto) 0.2 0.3 Baso % (Auto) 0.1 0.1 Absolute Neuts (auto) 1.0 L 0.9 L* Absolute Lymphs (auto) 0.9 L 0.8 L Absolute Monos (auto) 0 0.1 Absolute Eos (auto) 0 0 Absolute Basos (auto) 0 0 Absolute Nucleated RBC 0 0 Nucleated RBC % 0.1 0.2 Hem Pathologist Commnt Sodium Potassium Chloride Carbon Dioxide Anion Gap BUN Creatinine Est GFR ( Amer) Est GFR (Non-Af Amer) BUN/Creatinine Ratio Glucose Lactic Acid 1.6 Calcium Magnesium Troponin I Blood Type Antibody Screen 09/02/16 07:28 WBC RBC Hgb Hct MCV MCH MCHC RDW Plt Count MPV Neut % (Auto) Lymph % (Auto) Harnett % (Auto) Eos % (Auto) Baso % (Auto) Absolute Neuts (auto) Absolute Lymphs (auto) Absolute Monos (auto) Absolute Eos (auto) Absolute Basos (auto) Absolute Nucleated RBC Nucleated RBC % Hem Pathologist Commnt Sodium Potassium Chloride Carbon Dioxide Anion Gap BUN Creatinine Est GFR ( Amer) Est GFR (Non-Af Amer) BUN/Creatinine Ratio Glucose Lactic Acid Calcium Magnesium Troponin I Blood Type O Positive Antibody Screen Negative Exam Appearance: Other - Ill appearing Hygiene: Normal Grooming: Fairly Well Kept Psychomotor Activities: Abnormal-Decreased Exhibits Abnormal Movement: No Attitude and Relatedness: Withdrawn Eye Contact: Fair - Speech Quality: Unpressured Latencies: Long Quantity: Terse Patient's Decription of Mood: "Sad" Observed Affect: Constricted Affect Consistent with: Dysphoria Patient's Thought Process: Coherent Thought Content: No Passive Wish, No Suicidal Planning, No Homicidal Ideation, No Paranoid Ideation Experiencing Hallucinations: No, Sensorium is Clear Type of Hallucinations: Visual: No, Auditory: No, Command: No Level of Consciousness: Lethargic Orientation: Yes Intact, Yes Orientated to Time, Yes Orientated to Place, Yes Orientated to Person Impulse Control: Tenuous Insight and Judgement: Fair Impression - Impression Clinical Impression: Major Depressive DO, single episode, severe with psychotic features Merits Inpatient Hospitalization: No Problem List - MHU Problems Type of Problem: Mood Status of Problem: Active Plan - Treatment Plan Treatment Plan: Recommend continuation of olanzapine and sertraline, even in the palliative care setting, as they will increase comfort. Psychiatry will continue to follow. Continued Medication Management: Start Medication Medications: Current Medications Acetaminophen (Tylenol Tab*) 650 mg PO Q4H PRN PRN Reason: FEVER/PAIN Albuterol/Ipratropium (Duoneb Neb.Shira*) 1 neb INH Q4H PRN PRN Reason: shortness of breath Azithromycin (Zithromax Tab*) 250 mg PO DAILY [facility] Stop: 09/02/16 23:30 Last Admin: 09/02/16 09:04 Dose: 250 mg Dexamethasone (Decadron Tab*) 2 mg PO DAILY [facility] Last Admin: 09/02/16 09:05 Dose: 2 mg Diphenhydramine HCl (Benadryl Liq*) 25 mg PO BEDTIME PRN PRN Reason: insonmia Last Admin: 09/01/16 21:32 Dose: 25 mg Enoxaparin Sodium (Lovenox(*)) 110 mg SUBCUT DAILY [facility] Haloperidol Lactate (Haldol Inj Iv/Im*) 5 mg IV SLOW PU Q6H PRN PRN Reason: AGITATION Hydroxyzine HCl (Atarax Tab*) 50 mg PO Q6H [facility] Last Admin: 09/02/16 09:04 Dose: 50 mg Ceftriaxone Sodium 1,000 mg/ (Sodium Chloride) 50 mls @ 200 mls/hr IVPB Q24H [facility] Last Admin: 09/01/16 14:28 Dose: 200 mls/hr Metoprolol Tartrate (Lopressor Tab*) 25 mg PO BID [facility] Last Admin: 09/02/16 09:10 Dose: Not Given Olanzapine (Zyprexa Tab*) 5 mg PO BEDTIME [facility] Last Admin: 09/01/16 21:39 Dose: 5 mg Ondansetron HCl (Zofran Inj*) 4 mg IV Q4H PRN PRN Reason: NAUSEA/VOMITING Sertraline HCl (Zoloft*) 50 mg PO DAILY [facility] Last Admin: 09/02/16 09:05 Dose: 50 mg Tamsulosin HCl (Flomax Cap*) 0.4 mg PO BEDTIME [facility] Last Admin: 09/01/16 21:42 Dose: Not Given
[2016-09-02 14:15] LABS: Mean Platelet Volume 7 um3 (7.4-10.4)
[2016-09-02 14:16] LABS: Comments Flag Yes
[2016-09-02 14:35] LABS: Hematocrit 23 % (42-52); Hemoglobin 7.7 g/dl (14.0-18.0); Mean Corpuscular HGB Conc 34 g/dl (31-36); Mean Corpuscular Hemoglobin 30 pg (27-31); Mean Corpuscular Volume 88 fL (80-94); Red Blood Count 2.59 10^6/ul (4.0-5.4); Red Cell Distribution Width 19 % (10.5-15); White Blood Count 1.7 10^3/ul (3.5-10.8)
[2016-09-02] MEDS: cefTRIAXone VIAL(*) 1,000 MG in NS 0.9% 50 ML* 50 ML IVPB SCH (15:27)
[2016-09-02 18:34] LABS: Hematocrit 24 % (42-52); Hemoglobin 7.8 g/dl (14.0-18.0); Mean Corpuscular HGB Conc 33 g/dl (31-36); Mean Corpuscular Hemoglobin 30 pg (27-31); Mean Corpuscular Volume 89 fL (80-94); Red Blood Count 2.64 10^6/ul (4.0-5.4); Red Cell Distribution Width 20 % (10.5-15)
[2016-09-02 18:35] LABS: Comments Flag Yes
[2016-09-02 18:36] LABS: Add Diff/Slide Review? Manual Diff Added
[2016-09-02 18:55] LABS: Hypochromasia 1+; Immature Granulocytes 3 % (0-9); Macrocytosis 1+; Microcytosis 1+; Neutrophil % 63 % (38-83)
[2016-09-02 19:03] LABS: Mean Platelet Volume 9 um3 (7.4-10.4); White Blood Count 1.6 10^3/ul (3.5-10.8)
[2016-09-02] MEDS: OLANzapine TAB* 5 MG PO SCH (19:42)
[2016-09-02] MEDS: Tamsulosin CAP* 0.4 MG PO SCH (19:45)
[2016-09-03] MEDS: hydrOXYzine HCL TAB* 50 MG PO SCH ×4 (02:21→20:07)
[2016-09-03 05:28] LABS: Hematocrit 24 % (42-52); Mean Corpuscular HGB Conc 34 g/dl (31-36); Mean Corpuscular Hemoglobin 30 pg (27-31); Mean Corpuscular Volume 88 fL (80-94); Mean Platelet Volume 8 um3 (7.4-10.4); Red Blood Count 2.67 10^6/ul (4.0-5.4); Red Cell Distribution Width 19 % (10.5-15)
[2016-09-03 05:31] LABS: Comments Flag Yes
[2016-09-03 05:32] LABS: Add Diff/Slide Review? Slide Review Added; White Blood Count 2.3 10^3/ul (3.5-10.8)
[2016-09-03 05:44] LABS: BUN/Creatinine Ratio 24.3 (8-20); Calcium 8.3 mg/dL (8.6-10.3); EGFR Non-African American 111.2 (>60); Potassium 3.5 mmol/L (3.5-5.0)
[2016-09-03] MEDS: Metoprolol Tartrate TAB* 25 MG PO SCH ×2 (07:45→20:07)
[2016-09-03] MEDS: Dexamethasone TAB* 4 MG PO SCH (07:51)
[2016-09-03] MEDS: Sertraline* 50 MG TAB PO SCH (07:51)
[2016-09-03] MEDS ORDERED: Enoxaparin(*) 150 MG/ML 1 ML SYRINGE SUBCUT SCH ×2 (09:00)
[2016-09-03] MEDS ORDERED: Calcium Carbonate CHEW TAB* 500 MG (TUMS) PO PRN (09:18)
--- NOTE | 2016-09-03 12:24 | PN ---
Subjective Date of Service: 09/03/16 Interval History: Patient seen early this afternoon. No new complaints. Says he did well with food today, had breakfast and is awaiting lunch. Does report some BAI when going to the bathroom. No pain. Understands plans to go to hospice residence tomorrow. Discussed medication list with the patient. Family History: Unchanged from Admission Social History: Unchanged from Admission Past Medical History: Unchanged from Admission Objective Active Medications: Acetaminophen (Tylenol Tab*) 650 mg PO Q4H PRN Albuterol/Ipratropium (Duoneb Neb.Shira*) 1 neb INH Q4H PRN Calcium Carbonate (Tums*) 500 mg PO Q4H PRN Dexamethasone (Decadron Tab*) 2 mg PO DAILY [facility] Diphenhydramine HCl (Benadryl Liq*) 25 mg PO BEDTIME PRN Haloperidol Lactate (Haldol Inj Iv/Im*) 5 mg IV SLOW PU Q6H PRN Hydroxyzine HCl (Atarax Tab*) 50 mg PO Q6H [facility] Ceftriaxone Sodium 1,000 mg/ (Sodium Chloride) 50 mls @ 200 mls/hr IVPB Q24H [facility] Metoprolol Tartrate (Lopressor Tab*) 25 mg PO BID [facility] Olanzapine (Zyprexa Tab*) 5 mg PO BEDTIME [facility] Ondansetron HCl (Zofran Inj*) 4 mg IV Q4H PRN Sertraline HCl (Zoloft*) 50 mg PO DAILY [facility] Tamsulosin HCl (Flomax Cap*) 0.4 mg PO BEDTIME [facility] Vital Signs 09/02/16 09/02/16 09/02/16 15:08 17:52 20:00 Temperature 98.7 F Pulse Rate 84 Respiratory 16 16 Rate Blood Pressure 96/67 (mmHg) O2 Sat by Pulse 88 90 Oximetry 09/02/16 09/03/16 09/03/16 23:44 02:12 07:26 Temperature 97.3 F 97.4 F Pulse Rate 82 75 85 Respiratory 18 20 20 Rate Blood Pressure 146/118 97/64 (mmHg) O2 Sat by Pulse 95 92 96 Oximetry 09/03/16 09:58 Temperature Pulse Rate Respiratory 18 Rate Blood Pressure (mmHg) O2 Sat by Pulse Oximetry Oxygen Devices in Use Now: Nasal Cannula Appearance: Elderly, M, laying in bed in NAD Eyes: No Scleral Icterus Ears/Nose/Mouth/Throat: - - Dry MM Neck: NL Appearance and Movements; NL JVP Respiratory: Symmetrical Chest Expansion and Respiratory Effort, - - Coarse rales in anterior moon Cardiovascular: NL Sounds; No Murmurs; No JVD, RRR Abdominal: NL Sounds; No Tenderness; No Distention Lymphatic: No Cervical Adenopathy Extremities: No Edema Skin: No Rash or Ulcers Neurological: Alert and Oriented x 3 Result Diagrams: 09/03/16 05:09 09/03/16 05:09 Additional Lab and Data: . Assess/Plan/Problems-Billing . Assessment: 71 yo man with stage IV lung cancer - s/p 4 rounds of chemotherapy with carboplatin Now with acute PE in setting of RLL pneumonia with tachy-arrhythmia. plan for transition to hospice, d/c to hospice residence on 09/04 . 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 Prognosis given by Dr. Bradshaw as 14 months with chemo. Patient to have Hospice informational on Saturday 09/02. Continue DXM taper for brain mets will keep on 2 mg daily for a few additional days. Verbal report from Dr. Bradshaw's office is that the last MR brain was on 07/10/16 and showed small enhancng lesion in frontal lobe (must be same MR I reported as done on 07/17.) (2) Pulmonary embolism on long-term anticoagulation therapy Current Visit: Yes Comment: Will stop AC in the setting of hospice, recent bleeding and thrombycytopenia (3) Pneumonia Current Visit: Yes Comment: Completed ABx (4) Major depression Current Visit: Yes Comment: - major depression around his illness - Appreciate Psych assistance. Continue Sertraline and Olanzapine Status and Disposition: Transfer to hospice residence on 09/04
[2016-09-03] MEDS ORDERED: Morphine ORAL.SOLN 10 mg* 2 MG/ML UDC 5 ml PO PRN (16:28)
[2016-09-03] MEDS: OLANzapine TAB* 5 MG PO SCH (20:07)
[2016-09-03] MEDS: Tamsulosin CAP* 0.4 MG PO SCH (20:07)
[2016-09-04] MEDS: hydrOXYzine HCL TAB* 50 MG PO SCH ×3 (01:59→08:07)
[2016-09-04 07:56] VITALS: BP 105/63
[2016-09-04] MEDS: Sertraline* 50 MG TAB PO SCH (08:07)
[2016-09-04] MEDS: Dexamethasone TAB* 4 MG PO SCH (08:07)
--- NOTE | 2016-09-04 08:07 | DS ---
DISCHARGE SUMMARY: DATE OF ADMISSION: 08/28/16 DATE OF DISCHARGE: 09/04/16 PRINCIPAL DISCHARGE DIAGNOSIS: Metastatic lung cancer. SECONDARY DIAGNOSIS: 1. Hyperlipidemia. 2. Abdominal aortic aneurysm. 3. Deep venous thrombosis on Xarelto. DISCHARGE MEDICATION REGIMEN: 1. Flomax 0.4 mg by mouth at bedtime. 2. Zoloft 50 mg by mouth daily. 3. Olanzapine 5 mg by mouth at bedtime. 4. Metoprolol tartrate 25 mg by mouth 2 times daily. 5. Hydroxyzine 50 mg by mouth every 6 hours. 6. Benadryl 25 mg by mouth at bedtime as needed for sleep. 7. Decadron 2 mg by mouth daily. 8. Calcium carbonate 500 mg by mouth every 4 hours as needed for indigestion. 9. Albuterol DuoNeb one neb inhaler every 4 hours as needed for shortness of breath or wheezing. 10. Tylenol 650 mg by mouth every 4 hours as needed for pain. 11. Morphine 5 mg sublingual as needed for pain or discomfort. STUDIES DONE DURING HOSPITALIZATION: Chest x-ray, impression: Right basilar infiltrate and pleural effusion. CT of the chest: There are several pulmonary emboli present in the left upper lobe, moderate-sized right pleural effusion, patchy red upper and lower lobe infiltrate, more confluent mass-like infiltr ate adjacent to the right hilum suspicious for malignancy. Mild compression fracture of the T6 vert ebral body, likely chronic. HISTORY OF PRESENT ILLNESS AND HOSPITAL SUMMARY: Please see the full history and physical by Dr. Malina Hillman for full details. Briefly, Mr. Yadav is a 71-year- old man with a past medical histor y as above who presented to the hospital with a rapid heart rate. Workup showed possible pneumonia as well as pulmonary emboli. After further discussion with the family and the patient, the decision was made to pursue comfort care hospice approach. The patient was continued initially on blood thin ners; however, he had some rectal bleeding and thrombocytopenia which was a result of his recent akin mo. Lovenox was held at this time and will not be restarted as the risk of bleeding seems to outwei gh the risk of any respiratory benefit at this time. The patient will be continued on a Decadron ta per as he was on prior to admission, which will continue at 2 mg daily through 09/06/16 and then can be discontinued. The patient will be discharged to hospice residence. TIME SPENT: Total time spent on this discharge - 40 minutes. This is a summary of the hospitalization; please see the full medical record for further details. [id number]/[id number] #: [id number]
[2016-09-04] MEDS: Metoprolol Tartrate TAB* 25 MG PO SCH (08:17)
--- NOTE | 2016-09-04 09:12 | DCNOTE ---
Patient seen this morning. Sitting in chair watching TV. Says his appetite is improving. Feels that he will continue to get stronger. On exam, notable tremor, abd soft, NTND, no LE edema D/C to hospice residence today. Continue decadron taper.
== END 2016-09-04 10:15 | disposition hospice, inpatient (51) | DRG 175 ==
LOC: ED 13:43 → MEDTELE 15:39 → MED 08-30 20:16
PROVIDERS: ADMIT Internal Medicine; ATTEND Hospitalist
PROC: 30233R1 Transfusion of Nonautologous Platelets into Peripheral Vein, Percutaneous Approach (ICD-10-PCS; principal; 2016-09-02)
DX: I26.99 Other pulmonary embolism without acute cor pulmonale (principal); J18.9 Pneumonia, unspecified organism; D61.810 Antineoplastic chemotherapy induced pancytopenia; C79.31 Secondary malignant neoplasm of brain; I48.92 Unspecified atrial flutter; F32.3 Major depressive disorder, single episode, severe with psychotic features; M48.54XA Collapsed vertebra, not elsewhere classified, thoracic region, initial encounter for fracture; C34.31 Malignant neoplasm of lower lobe, right bronchus or lung; K62.5 Hemorrhage of anus and rectum; E86.0 Dehydration; C61 Malignant neoplasm of prostate; I48.91 Unspecified atrial fibrillation; E78.5 Hyperlipidemia, unspecified; I71.4 Abdominal aortic aneurysm, without rupture; Z80.0 Family history of malignant neoplasm of digestive organs; Z82.49 Family history of ischemic heart disease and other diseases of the circulatory system; M19.90 Unspecified osteoarthritis, unspecified site; Z87.891 Personal history of nicotine dependence; Z66 Do not resuscitate; F41.9 Anxiety disorder, unspecified; G25.0 Essential tremor; Z51.5 Encounter for palliative care; Z86.718 Personal history of other venous thrombosis and embolism
CPT/HCPCS: 36415; 71010; 71275; 80048; 80053; 81003; 82550; 82553; 83605; 83690; 83735; 83880; 84153; 84443; 84484; 85025; 85027; 85060; 85379; 85610; 85730; 86140; 86850; 86900; 86901; 93005; 94640; 94760; 94761; A9270-GY; J0456; J0696; J1630; J1650; J2270; J3475; J3486; J8540; P9035; Q9967